=== PATIENT | female | born 1965 | race Hispanic/Latino ===

== ENCOUNTER 2022-08-13 10:55 | Outpatient (CLI) | payer MEDICAID, SELFPAY ==
--- NOTE | 2022-08-13 | ECG_ITS ---
Measurements Intervals [place] Rate: 49 P: 34 VT: 145 QRS: 37 QRSD: 97 T: 50 QT: 471 QTc: 428 Interpretive Statements SINUS BRADYCARDIA BORDERLINE ECG NO PREVIOUS ECG AVAILABLE FOR COMPARISON Electronically Signed On 08-13-2022 17:19:17 CDT by Abner Scott M.D.
--- NOTE | ~2022-08-13 | XR_ITS ---
EXAMINATION: XR chest 2V 08/13/2022 11:28 INDICATION: Preop PROCEDURE: 2 view chest COMPARISON: No prior studies for comparison. FINDINGS: The lungs are clear. The cardiomediastinal silhouette is within normal limits. There are no pleural effusions. There is no pneumothorax suspected. IMPRESSION: 1: NO ACUTE CARDIOPULMONARY DISEASE. Reviewed, dictated and finalized at location A.
== END 2022-08-13 10:56 | disposition home or self-care (01) ==
PROVIDERS: PCP Physician Assistant; Visit Provider Physician Assistant
DX: Z01.818 Encounter for other preprocedural examination (principal)
CPT/HCPCS: 71046; 93005

== ENCOUNTER 2022-11-18 09:17 | Outpatient (CLI) | payer MEDICAID, SELFPAY ==
--- NOTE | 2022-11-18 11:00 | NEURO_ITS ---
Impression: # Complains of numbness of hands. # Evolving bilateral Carpal Tunnel Syndrome. # No ulnar neuropathy. # Normal needle/EMG exam. # Clinical correlation recommended. Motor Nerve Conduction Upper Extremities Median Nerve Conduction Velocity (m/sec) Terminal Latency (msec) Response Voltage(mV) Elbow-Wrist Wrist Elbow Wrist Right 57 3.4 7 7 Left 60 3.6 7 7 Ulnar Nerve Conduction Velocity (m/sec) Terminal Latency (msec) Response Voltage(mV) Above Elbow Below Elbow Wrist Above Elbow Below Elbow Wrist Right 54 2.4 6 7 Left 57 2.4 4 5 F-Wave Latency Median (ms) Ulnar (ms) Right 26.6 26.8 Left 26.6 26.9 Sensory Nerve Conduction Upper Extremities Median Nerve Stimulation Terminal Latency (msec) Wrist/Digit Response Voltage (uV) Wrist Right 3.0/3.1 47/55 Left 3.0/3.2 78/57 Ulnar Nerve Stimulation Terminal Latency (msec) Wrist/Digit Response Voltage (uV) Wrist Right 2.3 40 Left 2.5 48 Radial Nerve Terminal Latency (msec) Response Voltage(mV) Right 2.5 14 Left 2.2 24 Left Right Muscles Examined Fibrillation Fasciculation Scarcity Voltage Duration Left Right Left Right Left Right Left Right Left Right Deltoid Biceps X X Brachioradialis Triceps X X Pronator Teres X X Ext Indicis X X Ext Digitorum X X Abd Poll Brev X X 1st Dorsal Interosseus Paraspinals MTDD
== END 2022-11-18 09:18 | disposition home or self-care (01) ==
LOC: ANHNEURO 09:18
PROVIDERS: PCP Physician Assistant; Visit Provider Physician Assistant
DX: G56.03 Carpal tunnel syndrome, bilateral upper limbs (principal)
CPT/HCPCS: 95886; 95911

== ENCOUNTER 2024-03-13 10:36 | Outpatient (CLI) | payer OTHER, SELFPAY ==
--- NOTE | ~2024-03-13 | MM_ITS ---
EXAMINATION: MM screening mammo implant BI HISTORY: Screening mammogram TECHNIQUE: Craniocaudal and mediolateral oblique views of the breasts without implant displacement we re obtained using full field digital mammography. There was insufficient tissue to perform implant di splaced views. CAD analysis was submitted and interpreted. COMPARISON: No prior mammogram is available for comparison at this institution. BREAST PARENCHYMAL COMPOSITION: The breasts are almost entirely fatty. FINDINGS: Status post bilateral augmentation mammoplasty. There is no evidence of suspicious mass, ca lcification, or architectural distortion to suggest malignancy in either breast. IMPRESSION: 1. No mammographic evidence of malignancy. 2. Recommend routine screening mammography in one year. BI-RADS Category 1: Negative Reviewed, dictated and finalized at location A.
== END 2024-03-13 10:37 | disposition home or self-care (01) ==
LOC: ANHIMG 10:39
PROVIDERS: PCP Physician Assistant; Visit Provider Physician Assistant
DX: Z12.31 Encounter for screening mammogram for malignant neoplasm of breast (principal)
CPT/HCPCS: 77067

== ENCOUNTER 2024-05-04 17:05 | Emergency (ER) | payer OTHER, SELFPAY ==
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
[2024-05-04 17:31] VITALS: BP 130/70; PULSE 62; RESP 16; TEMP 36.4; O2SAT 100
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
[2024-05-04] MEDS: CYCLOBENZAPRINE HCL 5 MG TABLET PO (20:11)
[2024-05-04] MEDS: ACETAMINOPHEN 500 MG TABLET 1000 MG PO (20:11)
[2024-05-04 22:05] VITALS: BP 100/70; PULSE 51; RESP 15; TEMP 36.9; O2SAT 100
== END 2024-05-04 22:07 | disposition home or self-care (01) ==
PROVIDERS: Emergency Provider Physician Assistant; PCP Physician Assistant
DX: S16.1XXA Strain of muscle, fascia and tendon at neck level, initial encounter (principal); S39.012A Strain of muscle, fascia and tendon of lower back, initial encounter; S92.421A Displaced fracture of distal phalanx of right great toe, initial encounter for closed fracture; V40.5XXA Car driver injured in collision with pedestrian or animal in traffic accident, initial encounter
CPT/HCPCS: 70450; 72125; 72128; 72131; 73660; 99284; A9270

== ENCOUNTER 2024-09-15 15:46 | Outpatient (CLI) | payer OTHER, SELFPAY ==
--- NOTE | 2024-09-15 | ECG_ITS ---
Test Date: 2024-09-15 16:05:21 Measurements Intervals [place] Rate: 59 P: 49 ND: 135 QRS: 27 QRSD: 97 T: 41 QT: 420 QTc: 417 Interpretive Statements SINUS BRADYCARDIA BORDERLINE ECG No previous ECG available for comparison Electronically Signed On 09-15-2024 16:14:05 [employer] SPECIALIST by Oswaldo Pemberton D.O.
== END 2024-09-15 15:47 | disposition home or self-care (01) ==
LOC: ANHCARD 15:49
PROVIDERS: PCP Physician Assistant; Visit Provider Physician Assistant
DX: Z01.818 Encounter for other preprocedural examination (principal)
CPT/HCPCS: 93005

== ENCOUNTER 2025-01-13 11:05 | Outpatient (CLI) | payer OTHER, SELFPAY ==
--- NOTE | ~2025-01-13 | MM_ITS ---
EXAMINATION: MM diag quintin implant BI w sadaf HISTORY: Screening mammogram TECHNIQUE: Craniocaudal and mediolateral oblique 2-D images were generated. CAD analysis was submitt ed and interpreted. COMPARISON: 03/13/2024 BREAST PARENCHYMAL COMPOSITION:Not Dense. The breasts are almost entirely fatty FINDINGS: No suspicious mass, calcification, or architectural distortion are identified in either clay ast to suggest malignancy. There has been no suspicious interval change. IMPRESSION: No mammographic evidence of malignancy. Recommend routine screening mammography in one year. BI-RADS Category 1: Negative Reviewed, dictated and finalized at location . 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
--- OUTSIDE RECORDS SUMMARY | 2025-01-13 12:49 | XMS_ITS | Data Portability ---
[facility] Organization [facility] Address [address] [place] [address] Care Team Providers Care Receptionist Doctor'S Office Name Role Phone YANNA PÉREZ Primary Care Provider Assessment Encounter Date Assessment Date Assessment LastModified by Organization Details LastModified Time 03/01/2024 03/01/2024 small lymphnode on left side neck Not available 03/09/2024 14:46:31 08/11/2024 08/11/2024 09/17/24 eye surgery on R side and october other eye Not available 08/17/2024 14:46:10 10/21/2024 10/21/2024 pap scheduled Not available 10/21/2024 13:51:25 Plan of Treatment Reminders Order Date Submit Date Provider Last Modified By Organization Details Last Modified Time Details Appointments None recorded. Lab pap, IG + reflex HPV 2024 025 [facility], [address] [facility], [address], [place], [address], 5 19:19:56 HbA1c (hemoglobi n A1c), blood 2024 025 [facility] In-Office Order, Internal Use Only DO Not Attach Compendium DO Not Attach Compendium, Do Not Delete/merge, [id number] 5 10:58:40 noninvasiv e colorectal cancer DNA + occult blood screening, QL, stool 2024 025 [facility] (Cologuard Orders Only), [address], [address], [place], [address], 5 13:44:43 PT/PTT, plasma 2023 [facility], [address], [address], [place], [address], 4 01:08:11 CBC w/ auto diff 2023 [facility], [address], [address], [place], [address], 4 08:31:31 CMP, serum or plasma 2023 [facility] BOSERP, [address], [address], [place], [address], 4 08:31:30 urinalysis , dipstick 2023 [facility] In-Office Order, Internal Use Only DO Not Attach Compendium DO Not Attach Compendium, Do Not Delete/merge, [id number] 4 17:02:08 HbA1c (hemoglobi n A1c), blood 2023 [facility] MORATAYA, [address], [address], [place], [address], 4 01:08:09 culture, urine 2023 [facility], [address], [address], [place], [address], 4 01:08:10 lipid panel, serum 2023 [facility] BOSERP, [address], [address], [place], [address], 4 01:07:27 TSH, ultra-sens itive, serum 2023 024 [facility], [address] [facility], [address], [place], [address], 4 11:16:20 CMP, serum or plasma 2023 024 [facility], [address] [facility] [address], [address], [place], [address], 4 01:07:27 CBC w/ auto diff 2023 024 [facility], [address] [facility] [address], [address], [place], [address], 4 01:07:28 HbA1c (hemoglobi n A1c), blood 2023 024 [facility], [address] [place] [address] Az, [address], [place], [address], 4 11:16:20 vitamin D, 25-hydroxy , total, serum 2023 024 [facility], [address] [facility], [address], [place], [address], 4 11:16:21 Referral breast surgery referral - had breast reconstruc tion 15 years ago post cancerneed s f/u 2024 025 [facility], [address], [place] [address], [place], [address], 5 17:25:17 gastroente rologist referral [address] ([facility]), [address] [facility] , [place], [address], 5 08:05:37 breast surgery referral - hx of breast cancer and reconstruc tion at [facility] feels mass on left breast under implant [address], [address] [place], [address], 4 16:42:10 gastroente rologist referral [address] (Rad), [address] [place], [address], 4 16:46:50 breast center referral 2023 024 [facility], [address], [address], [place], [address], 4 14:33:59 Procedures colonoscop y screening (PROC) 2023 024 [facility] Toni Tucker MD, [address] [facility] [address], [address], [place], [address], 4 15:37:09 Surgeries None recorded. Imaging MAMMO, diagnostic , digital, bilateral [address] (Mammography) , [address], [place], [address], 5 12:02:40 US, breast, bilateral - Auth # [id number] 2024 025 [facility] (Mammography) , [address], [place], [address], 5 12:40:42 US, breast, unilateral [address] (Rad), [address] [place], [address], 4 08:00:38 MAMMO, diagnostic , digital, bilateral [address] (Rad), [address] [place], [address], 08:00:46 MAMMO, screening, bilateral 2023 [facility] (Imaging), [address], [place], [address], 12:24:23 Medication Orders semaglutid e 0.25 mg or 0.5 mg (2 mg/1.5 mL) subcutaneo us pen injector 2023 [facility], [address], [place], [address], 13:52:17 Miralax 17 gram/dose oral powder 2023 [facility], [address], [place], [address], 17:36:49 Patient TargetsNo targets recorded. Patient Instructions Encounter Date Encounter Id Patient Instructions Last Modified By Organization Details Last Modified Time 03/01/2024 [id number] A healthy lifestyle: care instructions Not available 03/01/2024 16:42:22 08/11/2024 [id number] rhythm strip, EKG* [facility] Not available 09/18/2024 16:13:24 10/21/2024 [id number] A healthy lifestyle: care instructions Not available 10/21/2024 13:52:06 12/20/2024 [id number] A healthy lifestyle: care instructions Not available 12/20/2024 10:35:37 12/23/2024 [id number] A healthy lifestyle: care instructions Not available 12/23/2024 11:36:17 Reason for Referral Breast Center Referral for S creening mammography Referring Physician: Yanna Pérez, Executive Marketing Assistant, Encounter Date: 03/01/2024 Breast Surgery Referral for Mass of left breast hx of breast cancer and reconstruction at [facility] feels mass on left breast under implant Referring Physician: Yanna Pérez Executive Marketing Assistant, Encounter Date: 08/11/2024 Break Out Worker Referral for Screening for malignant neoplasm of colon Referring Physician: General David Lawton, Encounter Date: 08/11/2024 Break Out Worker Referral for Screening for malignant neoplasm of colon Referring Physician: General David Lawton, Encounter Date: 10/21/2024 Breast Surgery Referral for Mastodynia of bilateral breasts had breast reconstruction 15 years ago post cancerneeds f/u Referring Physician: [facility], Encounter Date: 12/23/2024 Results Created Date Observation Date Name Description Value Unit Range Abnormal Flag Note LastModifiedBy Organization Detail LastModifiedTime 03/01/2003/03/2024 LIPID PANEL cholesterol, total 202 mg/dL 100-19 9 above high normal Not Available [facility] Department [address] [place], [address], 03/03/2024 01:07:27 03/01/2003/03/2024 LIPID PANEL triglyceride s 166 mg/dL 0-149 above high normal Not Available [facility] Department [address] [place], [address], 03/03/2024 01:07:27 03/01/2003/03/2024 LIPID PANEL HDL cholesterol 47 mg/dL 40-999 Not Available [facility] Department [address] [place], [address], 03/03/2024 01:07:27 03/01/2003/03/2024 LIPID PANEL VLDL cholesterol leann 33 mg/dL 5-40 Not Available [facility] Department [address] [place], [address], 03/03/2024 01:07:27 03/01/2003/03/2024 LIPID PANEL LDL chol calc ([facility]) 145 mg/dL 0-99 above high normal Not Available [facility] Department [address] [place], [address], 03/03/2024 01:07:27 03/01/20 24 03/03/2024 COMP. METAB OLIC PANEL (14) glucose 67 mg/dL 70-99 below low normal Not Available [facility] Department [address] [place] [address], [address], 03/03/2024 01:07:27 03/01/20 24 03/03/2024 COMP. METAB OLIC PANEL (14) BUN 15 mg/dL 6-24 Not Available [facility] Department [address] [place] [address], [address], 03/03/2024 01:07:27 03/01/20 24 03/03/2024 COMP. METAB OLIC PANEL (14) creatinine 0.84 mg/dL 0.76-1 .27 Not Available [facility] Department [address] [place] [address], [address], 03/03/2024 01:07:27 03/01/20 24 03/03/2024 COMP. METAB OLIC PANEL (14) eGFR 81 >=60 Units for eGFR value s are mL/mi n/1.7 3 The eGFR Calcu latio n has not been valid ated for patie nts under the age of 18. If test resul ts are displ ayed for a patie nt under the age of 18, disre massimo that value . Not Available [facility] Department [address] [place] [address], [address], 03/03/2024 01:07:27 03/01/20 24 03/03/2024 COMP. METAB OLIC PANEL (14) BUN/creatini ne ratio 17 9-23 Not Available [facility] Department [address] [place] [address], [address], 03/03/2024 01:07:27 03/01/20 24 03/03/2024 COMP. METAB OLIC PANEL (14) sodium 139 mmol/ L 134-14 4 Not Available [facility] Department [address] [place] [address], [address], 03/03/2024 01:07:27 03/01/20 24 03/03/2024 COMP. METAB OLIC PANEL (14) potassium 4.3 mmol/ L 3.5-5. 2 Not Available [facility] Department [address] [place], [address], 03/03/2024 01:07:27 03/01/20 24 03/03/2024 COMP. METAB OLIC PANEL (14) chloride 101 mmol/ L 96-106 Not Available [facility] Department [address] [place] [address], [address], 03/03/2024 01:07:27 03/01/20 24 03/03/2024 COMP. METAB OLIC PANEL (14) carbon dioxide, total 23 mmol/ L 20-29 Not Available [facility] Department [address] [place] [address], [address], 03/03/2024 01:07:27 03/01/20 24 03/03/2024 COMP. METAB OLIC PANEL (14) calcium 9.6 mg/dL 8.7-10 .2 Not Available [facility] Department [address] [place], [address], 03/03/2024 01:07:27 03/01/20 24 03/03/2024 COMP. METAB OLIC PANEL (14) protein, total 7.9 g/dL 6.0-8. 5 Not Available [facility] Department [address] [place], [address], 03/03/2024 01:07:27 03/01/20 24 03/03/2024 COMP. METAB OLIC PANEL (14) albumin 4.5 g/dL 3.8-4. 9 Not Available [facility] Department [address] [place], [address], 03/03/2024 01:07:27 03/01/20 24 03/03/2024 COMP. METAB OLIC PANEL (14) globulin, total 3.4 g/dL 1.5-4. 5 Not Available [facility] Department [address] [place], [address], 03/03/2024 01:07:27 03/01/20 24 03/03/2024 COMP. METAB OLIC PANEL (14) A/G ratio 1.0 1.2-2. 2 below low normal Not Available [facility] Department [address] [place], [address], 03/03/2024 01:07:27 03/01/20 24 03/03/2024 COMP. METAB OLIC PANEL (14) bilirubin, total 0.2 mg/dL 0.0-1. 2 Not Available [facility] Department [address] [place], [address], 03/03/2024 01:07:27 03/01/20 24 03/03/2024 COMP. METAB OLIC PANEL (14) alkaline phosphatase 125 IU/L 44-121 above high normal Not Available [facility] Department [address] [place], [address], 03/03/2024 01:07:27 03/01/20 24 03/03/2024 COMP. METAB OLIC PANEL (14) AST (SGOT) 17 IU/L 0-40 Not Available [facility] Department [address] [place], [address], 03/03/2024 01:07:27 03/01/20 24 03/03/2024 COMP. METAB OLIC PANEL (14) ALT (SGPT) 14 IU/L 0-32 Not Available [facility] Department [address] [place], [address], 03/03/2024 01:07:27 03/01/20 24 03/02/2024 CBC WITH DIFFE RENTI AL/PL ATELE T WBC 6.5 x10e3 /uL 3.4-10 .8 Not Available [facility] Department [address] [place], [address], 03/03/2024 01:07:28 03/01/20 24 03/02/2024 CBC WITH DIFFE RENTI AL/PL ATELE T RBC 4.22 x10e6 /uL 3.77-5 .28 Not Available [facility] Department [address] [place], [address], 03/03/2024 01:07:28 03/01/2003/02/2024 CBC WITH DIFFE RENTI AL/PL ATELE T hemoglobin 11.8 g/dL 11.1-1 5.9 Not Available [facility] Department [address] [place], [address], 03/03/2024 01:07:28 03/01/2003/02/2024 CBC WITH DIFFE RENTI AL/PL ATELE T hematocrit 38.3 % 34.0-4 6.6 Not Available [facility] Department [address] [place], [address], 03/03/2024 01:07:28 03/01/20 24 03/02/2024 CBC WITH DIFFE RENTI AL/PL ATELE T MCV 91 fL 79-97 Not Available [facility] Department [address] [place], [address], 03/03/2024 01:07:28 03/01/2003/02/2024 CBC WITH DIFFE RENTI AL/PL ATELE T MCH 28.0 pg 26.6-3 3.0 Not Available [facility] Department [address] [place], [address], 03/03/2024 01:07:28 03/01/2003/02/2024 CBC WITH DIFFE RENTI AL/PL ATELE T MCHC 30.8 g/dL 31.5-3 5.7 below low normal Not Available [facility] Department [address] [place], [address], 03/03/2024 01:07:28 03/01/20 24 03/02/2024 CBC WITH DIFFE RENTI AL/PL ATELE T RDW 14.9 % 11.5-1 4.5 above high normal Not Available [facility] Department [address] [place], [address], 03/03/2024 01:07:28 03/01/20 24 03/02/2024 CBC WITH DIFFE RENTI AL/PL ATELE T platelets 286 x10e3 /uL 150-45 0 Not Available [facility] Department [address] [place], [address], 03/03/2024 01:07:28 03/01/20 24 03/02/2024 CBC WITH DIFFE RENTI AL/PL ATELE T neutrophils 57 % notest b. Not Available [facility] Department [address] [place] [address], [address], 03/03/2024 01:07:28 03/01/20 24 03/02/2024 CBC WITH DIFFE RENTI AL/PL ATELE T lymphs 33 % notest b. Not Available [facility] Department [address] [place] [address], [address], 03/03/2024 01:07:28 03/01/20 24 03/02/2024 CBC WITH DIFFE RENTI AL/PL ATELE T monocytes 7 % notest b. Not Available [facility] Department [address] [place], [address], 03/03/2024 01:07:28 03/01/20 24 03/02/2024 CBC WITH DIFFE RENTI AL/PL ATELE T eos 1 % notest b. Not Available [facility] Department [address] [place] [address], [address], 03/03/2024 01:07:28 03/01/20 24 03/02/2024 CBC WITH DIFFE RENTI AL/PL ATELE T basos 1 % notest b. Not Available [facility] Department [address] [place] [address], [address], 03/03/2024 01:07:28 03/01/20 24 03/02/2024 CBC WITH DIFFE RENTI AL/PL ATELE T neutrophils (absolute) 3.7 x10e3 /uL 1.4-7. 0 Not Available [facility] Department [address] [place], [address], 03/03/2024 01:07:28 03/01/20 24 03/02/2024 CBC WITH DIFFE RENTI AL/PL ATELE T lymphs (absolute) 2.2 x10e3 /uL 0.7-3. 1 Not Available [facility] Department [address] [place] [address], [address], 03/03/2024 01:07:28 03/01/20 24 03/02/2024 CBC WITH DIFFE RENTI AL/PL ATELE T monocytes(ab solute) 0.5 x10e3 /uL 0.1-0. 9 Not Available [facility] Department [address] [place], [address], 03/03/2024 01:07:28 03/01/20 24 03/02/2024 CBC WITH DIFFE RENTI AL/PL ATELE T eos (absolute) 0.1 x10e3 /uL 0.0-0. 4 Not Available [facility] Department [address] [place] [address], [address], 03/03/2024 01:07:28 03/01/20 24 03/02/2024 CBC WITH DIFFE RENTI AL/PL ATELE T baso (absolute) 0.0 x10e3 /uL 0.0-0. 2 Not Available [facility] Department [address] [place], [address], 03/03/2024 01:07:28 03/01/20 24 03/02/2024 CBC WITH DIFFE RENTI AL/PL ATELE T immature granulocytes 0.3 % notest b. Not Available [facility] Department [address] [place] [address], [address], 03/03/2024 01:07:28 03/01/2003/02/2024 CBC WITH DIFFE RENTI AL/PL ATELE T immature grans (abs) 0.0 x10e3 /uL 0.0-0. 1 Not Available [facility] Department [address] [place], [address], 03/03/2024 01:07:28 03/01/20 24 03/02/2024 CBC WITH DIFFE RENTI AL/PL ATELE T NRBC 0 % 0-0 Not Available [facility] Department [address] [place], [address], 03/03/2024 01:07:28 03/01/2003/03/2024 TSH RFX ON ABNOR MAL TO FREE T4 TSH 2.030 uIU/m L 0.450- 4.500 Not Available [facility] ([facility]) [address] [facility], [place], [address], 03/03/2024 11:16:20 03/01/2003/03/2024 HEMOG LOBIN A1C hemoglobin A1C 6.1 % 4.8-5. 6 above high normal Predi abete s: 5.7 - 6.4 Diabe aleksandr: >6.4 Glyce max contr ol for adult s with diabe aleksandr: <7.0 Not Available [facility] ([facility]) [address] [facility], [place], [address], 03/03/2024 11:16:20 03/01/20 24 03/03/2024 VITAM IN D, 25-HY DROXY vitamin D, 25-hydroxy 23.1 NG/mL 30.0-1 00.0 below low normal Vitam in D defic iency has been defin ed by the Insti tute of Medic ine and an Endoc rine Socie ty pract ice guide line as a level of serum 25-OH vitam in D less than 20 ng/mL (1,2) . The Endoc rine Socie ty went on to replaced by [facility] anson er defin e vitam in D insuf ficie ncy as a level betwe en 21 and 29 ng/mL (2). 1. IOM (Inst itute of Medic ine). 2010. Dieta ry refer ence jillian es for calci um and D. Kacie joya [place]: The [facility] . 2. Holic k [place], Bink[place] ey [place], Bisch off-F errar i BENJAMIN, et al. Evalu ation , treat ment, and preve ntion of vitam in D defic iency : an Endoc rine Socie ty clini leann pract ice guide line. JCEM. 2010; 96(7) :1911 -30. Not Available [facility] ([facility]) [address] [place], [address], 03/03/2024 11:16:21 08/11/2008/13/2024 COMP. METAB OLIC PANEL (14) glucose 81 mg/dL 70-99 Not Available [facility] ([facility]) [address] [place], [address], 08/13/2024 08:31:30 08/11/2008/13/2024 COMP. METAB OLIC PANEL (14) BUN 12 mg/dL 6-24 Not Available [facility] ([facility]) [address] [place], [address], 08/13/2024 08:31:30 08/11/2008/13/2024 COMP. METAB OLIC PANEL (14) creatinine 0.79 mg/dL 0.57-1 .00 Not Available [facility] ([facility]) [address] [place], [address], 08/13/2024 08:31:30 08/11/2008/13/2024 COMP. METAB OLIC PANEL (14) eGFR 87 mL/mi n/1.7 3 >59 Not Available [facility] ([facility]) [address] [place], [address], 08/13/2024 08:31:30 08/11/20 24 08/13/2024 COMP. METAB OLIC PANEL (14) BUN/creatini ne ratio 15 9-23 Not Available [facility] ([facility]) [address] [facility], [place], [address], 08/13/2024 08:31:30 08/11/20 24 08/13/2024 COMP. METAB OLIC PANEL (14) sodium 142 mmol/ L 134-14 4 Not Available [facility] ([facility]) [address] [facility], [place], [address], 08/13/2024 08:31:30 08/11/20 24 08/13/2024 COMP. METAB OLIC PANEL (14) potassium 4.1 mmol/ L 3.5-5. 2 Not Available [facility] ([facility]) [address] [facility], [place], [address], 08/13/2024 08:31:30 08/11/20 24 08/13/2024 COMP. METAB OLIC PANEL (14) chloride 101 mmol/ L 96-106 Not Available [facility] ([facility]) [address] [place], [address], 08/13/2024 08:31:30 08/11/20 24 08/13/2024 COMP. METAB OLIC PANEL (14) carbon dioxide, total 26 mmol/ L 20-29 Not Available [facility] ([facility]) [address] [facility], [place], [address], 08/13/2024 08:31:30 08/11/20 24 08/13/2024 COMP. METAB OLIC PANEL (14) calcium 9.8 mg/dL 8.7-10 .2 Not Available [facility] ([facility]) [address] [place], [address], 08/13/2024 08:31:30 08/11/20 24 08/13/2024 COMP. METAB OLIC PANEL (14) protein, total 8.2 g/dL 6.0-8. 5 Not Available [facility] ([facility]) [address] [place], [id number], 08/13/2024 08:31:30 08/11/20 24 08/13/2024 COMP. METAB OLIC PANEL (14) albumin 4.6 g/dL 3.8-4. 9 Not Available [facility] ([facility]) [address] [place] [place], [id number], 08/13/2024 08:31:30 08/11/20 24 08/13/2024 COMP. METAB OLIC PANEL (14) globulin, total 3.6 g/dL 1.5-4. 5 Not Available [facility] ([facility]) [address] [place] [place], [id number], 08/13/2024 08:31:30 08/11/20 24 08/13/2024 COMP. METAB OLIC PANEL (14) bilirubin, total 0.2 mg/dL 0.0-1. 2 Not Available [facility] ([facility]) [address] [facility] [place], [address], 08/13/2024 08:31:30 08/11/20 24 08/13/2024 COMP. METAB OLIC PANEL (14) alkaline phosphatase 130 IU/L 44-121 above high normal Not Available [facility] ([facility]) [address] [place] [place], [address], 08/13/2024 08:31:30 08/11/20 24 08/13/2024 COMP. METAB OLIC PANEL (14) AST (SGOT) 26 IU/L 0-40 Not Available [facility] ([facility]) [address] [place] [place], [address], 08/13/2024 08:31:30 08/11/20 24 08/13/2024 COMP. METAB OLIC PANEL (14) ALT (SGPT) 42 IU/L 0-32 above high normal Not Available [facility] ([facility]) [address] [facility], [place], [address], 08/13/2024 08:31:30 08/11/20 24 08/13/2024 CBC WITH DIFFE RENTI AL/PL ATELE T WBC 6.2 x10e3 /uL 3.4-10 .8 Not Available [facility] ([facility]) [address] [facility], [place], [address], 08/13/2024 08:31:31 08/11/20 24 08/13/2024 CBC WITH DIFFE RENTI AL/PL ATELE T RBC 4.71 x10e6 /uL 3.77-5 .28 Not Available [facility] ([facility]) [address] [facility], [place], [address], 08/13/2024 08:31:31 08/11/20 24 08/13/2024 CBC WITH DIFFE RENTI AL/PL ATELE T hemoglobin 12.5 g/dL 11.1-1 5.9 Not Available [facility] ([facility]) [address] [facility], [place], [address], 08/13/2024 08:31:31 08/11/20 24 08/13/2024 CBC WITH DIFFE RENTI AL/PL ATELE T hematocrit 41.1 % 34.0-4 6.6 Not Available [facility] ([facility]) [address] [facility], [place], [address], 08/13/2024 08:31:31 08/11/20 24 08/13/2024 CBC WITH DIFFE RENTI AL/PL ATELE T MCV 87 fL 79-97 Not Available [facility] ([facility]) [address] [place], [address], 08/13/2024 08:31:31 08/11/20 24 08/13/2024 CBC WITH DIFFE RENTI AL/PL ATELE T MCH 26.5 pg 26.6-3 3.0 below low normal Not Available [facility] ([facility]) [address] [facility], [place], [address], 08/13/2024 08:31:31 08/11/20 24 08/13/2024 CBC WITH DIFFE RENTI AL/PL ATELE T MCHC 30.4 g/dL 31.5-3 5.7 below low normal Not Available [facility] ([facility]) [address] [facility], [place], [address], 08/13/2024 08:31:31 08/11/20 24 08/13/2024 CBC WITH DIFFE RENTI AL/PL ATELE T RDW 15.2 % 11.7-1 5.4 Not Available [facility] ([facility]) [address] [facility], [place], [address], 08/13/2024 08:31:31 08/11/20 24 08/13/2024 CBC WITH DIFFE RENTI AL/PL ATELE T platelets 313 x10e3 /uL 150-45 0 Not Available [facility] ([facility]) [address] [facility], [place], [address], 08/13/2024 08:31:31 08/11/20 24 08/13/2024 CBC WITH DIFFE RENTI AL/PL ATELE T neutrophils 52 % notest ab. Not Available [facility] ([facility]) [address] [facility], [place], [address], 08/13/2024 08:31:31 08/11/20 24 08/13/2024 CBC WITH DIFFE RENTI AL/PL ATELE T lymphs 34 % notest ab. Not Available [facility] ([facility]) [address] [facility], [place], [address], 08/13/2024 08:31:31 08/11/20 24 08/13/2024 CBC WITH DIFFE RENTI AL/PL ATELE T monocytes 10 % notest ab. Not Available [facility] ([facility]) [address] [facility], [place], [address], 08/13/2024 08:31:31 08/11/2008/13/2024 CBC WITH DIFFE RENTI AL/PL ATELE T eos 2 % notest ab. Not Available [facility] ([facility]) [address] [facility], [place], [address], 08/13/2024 08:31:31 08/11/2008/13/2024 CBC WITH DIFFE RENTI AL/PL ATELE T basos 1 % notest ab. Not Available [facility] ([facility]) [address] [facility], [place], [address], 08/13/2024 08:31:31 08/11/20 24 08/13/2024 CBC WITH DIFFE RENTI AL/PL ATELE T neutrophils (absolute) 3.3 x10e3 /uL 1.4-7. 0 Not Available [facility] ([facility]) [address] [facility], [place], [address], 08/13/2024 08:31:31 08/11/2008/13/2024 CBC WITH DIFFE RENTI AL/PL ATELE T lymphs (absolute) 2.1 x10e3 /uL 0.7-3. 1 Not Available [facility] ([facility]) [address] [facility], [place], [address], 08/13/2024 08:31:31 08/11/2008/13/2024 CBC WITH DIFFE RENTI AL/PL ATELE T monocytes(ab solute) 0.6 x10e3 /uL 0.1-0. 9 Not Available [facility] ([facility]) [address] [facility], [place], [address], 08/13/2024 08:31:31 08/11/20 24 08/13/2024 CBC WITH DIFFE RENTI AL/PL ATELE T eos (absolute) 0.2 x10e3 /uL 0.0-0. 4 Not Available [facility] ([facility]) [address] [facility], [place], [address], 08/13/2024 08:31:31 08/11/20 24 08/13/2024 CBC WITH DIFFE RENTI AL/PL ATELE T baso (absolute) 0.0 x10e3 /uL 0.0-0. 2 Not Available [facility] ([facility]) [address] [facility], [place], [address], 08/13/2024 08:31:31 08/11/20 24 08/13/2024 CBC WITH DIFFE RENTI AL/PL ATELE T immature granulocytes 1 % notest ab. Not Available [facility] ([facility]) [address] [facility], [place], [address], 08/13/2024 08:31:31 08/11/20 24 08/13/2024 CBC WITH DIFFE RENTI AL/PL ATELE T immature grans (abs) 0.1 x10e3 /uL 0.0-0. 1 Not Available [facility] ([facility]) [address] [facility], [place], [address], 08/13/2024 08:31:31 08/11/20 24 08/13/2024 SPECI MEN STATU S REPOR T specimen status report TNP Test not perfo rmed due to the age of this speci men. TEST: 36054 1 PT and PTT Not Available [facility] ([facility]) [address] [facility], [place], [address], 08/14/2024 01:08:08 08/11/2008/13/2024 HEMOG LOBIN A1C hemoglobin A1C 6.2 % 4.8-5. 6 above high normal Predi abete s: 5.7 - 6.4 Diabe aleksandr: >6.4 Glyce max contr ol for adult s with diabe aleksandr: <7.0 Not Available [facility] ([facility]) [address] [place], [address], 08/14/2024 01:08:09 08/11/20 24 08/14/2024 URINE CULTU RE, ROUTI NE urine culture, routine FINAL REPORT Not Available [facility] ([facility]) [address] [place], [address], 08/14/2024 01:08:10 08/11/20 24 08/14/2024 URINE CULTU RE, ROUTI NE result 1 COMMEN T Cultu re shows less than 10,00 0 colon y formi ng units of bacte gary per maude liter of urine . This colon y count is not gener ally consi dered to be clini mallika signi fican t. Not Available [facility] ([facility]) [address] [place], [address], 08/14/2024 01:08:10 08/11/20 24 08/13/2024 PT AND PTT INR TNP Test not perfo rmed due to the age of this speci men. Refer ence inter janay is for non-a ntico agula laurel patie nts. Sugge sted INR thera peuti c range for Vitam in K antag onist thera py: Stand celestine Dose (mode rate inten sity thera peuti c range ): 2.0 - 3.0 Highe r inten sity thera peuti c range 2.5 - 3.5 Not Available [facility] ([facility]) [address] [facility], [place], [address], 08/14/2024 01:08:11 08/11/20 24 08/13/2024 PT AND PTT prothrombin time - Test not perfo rmed Not Available [facility] ([facility]) [address] [place], [address], 08/14/2024 01:08:11 08/11/20 24 08/13/2024 PT AND PTT APTT - Test not perfo rmed Not Available [facility] ([facility]) [address] [facility] [place], [address], 08/14/2024 01:08:11 08/12/2008/12/2024 urina lysis , dipst ick Leukocytes Modera te Not Available In-Office Order Internal Use Only DO Not Attach Compendium DO Not Attach Compendium, Do Not Delete/merge, 08/11/2024 16:30:37 08/12/20 24 08/12/2024 urina lysis , dipst ick Nitrite negati ve Not Available In-Office Order Internal Use Only DO Not Attach Compendium DO Not Attach Compendium, Do Not Delete/merge, 08/11/2024 16:30:37 08/12/20 24 08/12/2024 urina lysis , dipst ick Urobilinogen .2 Not Available In-Of fice Order Internal Use Only DO Not Attach Compendium DO Not Attach Compendium, Do Not Delete/merge, 08/11/2024 16:30:37 08/12/20 24 08/12/2024 urina lysis , dipst ick Protein Negati ve Not Available In-Office Order Internal Use Only DO Not Attach Compendium DO Not Attach Compendium, Do Not Delete/merge, 08/11/2024 16:30:37 08/12/20 24 08/12/2024 urina lysis , dipst ick pH 7.0 Not Available In-Office Order Internal Use Only DO Not Attach Compendium DO Not Attach Compendium, Do Not Delete/merge, 08/11/2024 16:30:37 08/12/20 24 08/12/2024 urina lysis , dipst ick Blood Non-He molyze d: Modera te Not Available In-Office Order Internal Use Only DO Not Attach Compendium DO Not Attach Compendium, Do Not Delete/merge, 08/11/2024 16:30:37 08/12/20 24 08/12/2024 urina lysis , dipst ick Specific [place] 1.015 Not Available In-Off ice Order Internal Use Only DO Not Attach Compendium DO Not Attach Compendium, Do Not Delete/merge, 08/11/2024 16:30:37 08/12/20 24 08/12/2024 urina lysis , dipst ick Ketone Negati ve Not Available In-Office Order Internal Use Only DO Not Attach Compendium DO Not Attach Compendium, Do Not Delete/merge, [id number] 08/11/2024 16:30:37 08/12/20 24 08/12/2024 urina lysis , dipst ick Bilirubin Negati ve Not Available In-Office Order Internal Use Only DO Not Attach Compendium DO Not Attach Compendium, Do Not Delete/merge, [id number] 08/11/2024 16:30:37 08/12/20 24 08/12/2024 urina lysis , dipst ick Glucose Negati ve Not Available In-Office Order Internal Use Only DO Not Attach Compendium DO Not Attach Compendium, Do Not Delete/merge, [id number] 08/11/2024 16:30:37 08/12/20 24 08/12/2024 urina lysis , dipst ick Appearance Cloudy Not Available In-Offi ce Order Internal Use Only DO Not Attach Compendium DO Not Attach Compendium, Do Not Delete/merge, [id number] 08/11/2024 16:30:37 08/12/20 24 08/12/2024 urina lysis , dipst ick Color Yellow Not Available In-Office Order Internal Use Only DO Not Attach Compendium DO Not Attach Compendium, Do Not Delete/merge, [id number] 08/11/2024 16:30:37 12/21/19 25 12/21/2024 HbA1c (hemo globi n A1c), blood HbA1c 6.1 Not Available In-Office Order Internal Use Only DO Not Attach Compendium DO Not Attach Compendium, Do Not Delete/merge, [id number] 12/20/2024 10:47:05 12/23/19 25 12/23/2024 IGP,A PTIMA HPV,A GE GDLN age gdln acog testing 30-65 Not Available [facility] ([facility]) [address] [facility], [place], [address], 12/27/2024 19:19:56 12/23/19 25 12/24/2024 IGP, APTIM A HPV, RFX 16/18 ,45 HPV aptima Negati ve negati ve This nucle ic acid ampli ficat ion test detec ts fourt een high- risk HPV types (16,1 8,31, 33,35 ,39,4 5,51, 52,56 ,58,5 9,66, 68) witho ut diffe renti ation . Not Available [facility] ([facility]) [address] [facility], [place], [address], 12/27/2024 19:19:57 12/23/19 25 12/27/2024 IGP, APTIM A HPV, RFX 16/18 ,45 diagnosis: Onesimo alonzo NEGAT EVAN FOR INTRA EPITH ELIAL LESIO N OR CARYN DURAN . CELLU PABLO BURTON ES ASSOC IATED WITH ATROP HY ARE PRESE NT. Not Available [facility] ([facility]) [address] [facility], [place], [address], 12/27/2024 19:19:57 12/23/19 25 12/27/2024 IGP, APTIM A HPV, RFX 16/18 ,45 specimen adequacy: Onesimo t Satis facto ry for evalu ation . Endoc ervic al compo nent may not be disti nguis hed in cases of atrop hy. Not Available [facility] ([facility]) [address] [facility], [place], [address], 12/27/2024 19:19:57 12/23/19 25 12/27/2024 IGP, APTIM A HPV, RFX 16/18 ,45 clinician provided ICD10: Onesimo alonzo Z01.4 19 Not Available [facility] ([facility]) [address] [place], [address], 12/27/2024 19:19:57 12/23/19 25 12/27/2024 IGP, APTIM A HPV, RFX 16/18 ,45 performed by: Onesimo valle, Cytot ariel alonzo (ASCP ) Not Available [facility] ([facility]) [address] [place], [address], 12/27/2024 19:19:57 12/23/19 25 12/27/2024 IGP, APTIM A HPV, RFX 16/18 ,45 . . Not Available [facility] ([facility]) [address] [facility], [place], [address], 12/27/2024 19:19:57 12/23/19 25 12/27/2024 IGP, APTIM A HPV, RFX 16/18 ,45 note: Commen t The Pap smear is a scree mia test desig ladonna to aid in the detec tion of fei ligna nt and malig nant condi tions of the uteri ne cervi x. It is not a diagn ostic proce dure and shoul d not be used as the sole means of detec ting cervi leann cance r. Both false -posi tive and false -nega tive repor ts do occur . Not Available [facility] ([facility]) [address] [facility], [place], [address], 12/27/2024 19:19:57 12/23/19 25 12/27/2024 IGP, APTIM A HPV, RFX 16/18 ,45 test methodology: Commen t This liqui d based ThinP rep(R ) pap test was scree ladonna with the use of an image guide lashaun systkonrad m. Not Available [facility] ([facility]) [address] [facility], [place], [address], 12/27/2024 19:19:57 12/23/19 25 12/27/2024 IGP, APTIM A HPV, RFX 16/18 ,45 HPV genotype reflex Commen t Crite gary not met, HPV Genot ype not perfo rmed. Not Available [facility] ([facility]) [address] [facility], [place], [address], 12/27/2024 19:19:57 02/2401/03/2025 COLOG UARD cologuard result reportable NEGATI VE negati ve normal NEGAT EVAN TEST RESUL T. A negat evan Colog uard resul t indic ates a low likel ihood that a color ectal cance r (CRC) or advan aydee adeno ma (seamus omato us polyp s with more advan aydee pre-m align ant featu res) is prese nt. The [facility] e that a perso n with a negat evan Colog uard test has a color ectal cance r is less than 1 in 1500 (nega tive predi ctive value >99.9 %) or has an advan aydee adeno ma is less than 5.3% (nega tive predi ctive value 94.7% ). These data are based on a prosp ectiv e cross -sect ional study of ,00 0 indiv idual s at [place] [facility] risk for color ectal cance r who were scree ladonna with both Colog uard and colon oscop y. (Mary Andrews et al, N Engl J Med 2014; 370(1 4):12 86-12 97) The kwadwo l value (refe rence range ) for this assay is negat evan. COLOG UARD RE-SC REENI NG RECOM MENDA TION: Perio dic color ectal cance r scree mia is an impor tant part of preve ntive healt hcare for asymp tomat ic indiv idual s at [place] risk for color ectal cance r. Follo wing a negat evan Colog uard resul t, the Ameri can Cance r Socie ty and U.S. Multi -Soci ety Task Force scree mia guide lines recom mend a Colog uard re-sc reeni ng inter janay of 3 years . Refer ences : Ameri can Cance r Socie ty Guide line for Color ectal Cance r Scree mia: https ://imani w.can cer.o rg/ca ncer/ colon -rect al-ca ncer/ detec tion- diagn osis- stagi ng/ac s-rec ommen datio ns.ht ml.; Tayo CABRAL, [place] d CR, Domin brent JK, Color ectal Cance r Scree mia: Recom menda tions for Physi cians and Patie nts from the U.S. Multi -Soci ety Task Force on Color ectal Cance r Scree miaMaxim cevallos y 2017; 112:1 016-1 030. TEST DESCR IPTIO N: [place] site algor ithmi c kavitha sis of stool DNA-b iomar kers with hemog lobin immun oassa y. Quant itati ve value s of indiv idual bioma rkers are not repor table and are not assoc iated with indiv idual bioma rker resul t refer ence range s. Colog uard is inten ded for color ectal cance r scree mia of adult s of eithe r sex, 45 years or older , who are at [facility] for color ectal cance r (CRC) . Colog uard has been appro vanessa for use by the U.S. FDA. The perfo rmanc e of Colog uard was estab lishe d in a cross secti onal study of [facility] adult s aged 50-84 . Colog uard perfo rmanc e in patie nts ages 45 to 49 years was estim ated by jack-g milla kavitha sis of near- age group s. Colon oscop ies perfo rmed for a posit evan resul t may find as the most clini mallika signi fican t lesio n: color ectal cance r [4.0% ], advan aydee adeno ma (incl uding sessi le radha laurel polyp s great er than or equal to 1cm diame ter) [20%] or non- advan aydee adeno ma [31%] ; or no color ectal neopl natalie [45%] . These estim ates are deriv ed from a prosp ectiv e cross -sect ional scree mia study of 10,00 0 indiv idual s at [facility] risk for color ectal cance r who were scree ladonna with both Colog uard and colon oscop y. (Mary Andrews et al, N Engl J Med 2014; 370(1 4):12 86-12 97.) Colog uard may produ ce a false negat evan or false posit evan resul t (no color ectal cance r or preca ncero us polyp prese nt at colon oscop y follo w up). A negat evan Colog uard test resul t does not guara ntee the absen ce of CRC or advan aydee adeno ma (pre- cance r). The curre nt Colog uard scree mia inter janay is every 3 years . (Amer ican Cance r Socie ty and U.S. Multi -Soci ety Task Force ). Colog uard perfo rmanc e data in a 10,00 0 patie nt pivot al study using colon oscop y as the refer ence metho d can be acces sed at the follo wing locat ion: www.e xactl abs.c om/re sulcandido . Addit ional descr iptio n of the Colog uard test proce ss, warni ngs and preca ution s can be found at www.c ologu celestine.c om. Not Available [facility] (Cologuard Orders Only) [address], [place], [address], 01/08/2025 13:44:43 03/15/20 24 03/13/2024 MAMMO , ragini mia, bilat eral No observ ation record ed. [address], [address], 03/16/2024 12:13:01 03/15/20 24 03/13/2024 MAMMO , ralfkonrad olverag, bilat eral No observ ation record ed. [address], [address], 03/16/2024 12:13:01 05/04/20 24 05/04/2024 XR, toe(s ) No observ ation record ed. [address], [address], 05/12/2024 08:53:22 05/04/20 24 05/04/2024 CT, head + brain , w/o contr ast No observ ation record ed. [address] [facility], [place], [address], 05/12/2024 08:54:08 05/04/20 24 05/04/2024 CT, cervi leann spine , w/o contr ast No observ ation record ed. [address], [place], [address], 05/12/2024 08:54:35 05/04/20 24 05/04/2024 CT, lumba r spine , w/o contr ast No observ ation record ed. [address] [address], [place], [address], 05/12/2024 08:55:50 09/18/20 24 09/15/2024 rhyth m strip , EKG* No observ ation record ed. [facility] (Pulmonary) [address] [place], [place] [address]e [facility], [place], [address], 09/22/2024 05:59:48 Result Notes None recorded. Problems Name Problem SNOMED Code Status Onset Date Resolution Date Notes Provider Name and Address Organization Details Recorded Time Carcinoma of breast 885671508 Active 2021 COLE LAWTON Attn: Thai cevallos,[address] [facility], [place], [address], [facility] 2 10:15:17 Overweight 750017795 Active 2023 COLE LAWTON Attn: Thai cevallos,[address], [place], [address], [place] - [facility] 4 14:42:45 Constipatio n 86251283 Active 2023 COLE LAWTON Attn: Thai cevallos,[address], [place], [address], [facility] - [facility] 4 14:45:58 Obesity 020825727 Active 2023 COLE LAWTON Attn: Thai cevallos,[address] [facility], [place], [address], [facility] 13:52:23 Vitamin D deficiency 74920226 Active Riya Myers null, [place] - [place] 6 13:48:17 Serous otitis media 68956275 Completed 09/25/2016 Vicky Weir RN null, [facility] 6 16:35:09 Acute otitis media 6508473 Completed 09/25/2016 Vicky Weir RN null, [facility] 6 16:35:05 Problem Notes None recorded. Procedures Surgical History Date Name Laterality Status Provider Name and Address Organization Details Recorded Time 4 Date of Last Mammogram completed Marilyn Mora MA [facility] 12/23/2024 11:24:33 6 Date of Last Pap Smear completed Marilyn Mora MA [facility] 12/23/2024 11:24:21 Imaging Results Imaging Date Name Status LastModified by [facility] Details LastModified Time 03/13/2024 MAMMO, screening, bilateral completed [address], [address], 03/16/2024 12:13:01 03/13/2024 MAMMO, screening, bilateral completed [address], [address], 03/16/2024 12:13:01 05/04/2024 XR, toe(s) completed [address], [address], 05/12/2024 08:53:22 05/04/2024 CT, head + brain, w/o contrast completed [address], [address], 05/12/2024 08:54:08 05/04/2024 CT, cervical spine, w/o contrast completed [id number] [facility] [address], [place], [address], 05/12/2024 08:54:35 05/04/2024 CT, lumbar spine, w/o contrast completed [address] [facility] [address], [place], [address], 05/12/2024 08:55:50 09/15/2024 rhythm strip, EKG* completed [facility] (Pulmonary) [address] [place] [address] [address] [facility], [place], [address], 09/22/2024 05:59:48 Procedure Notes None recorded. Medical Equipment None Reported. Allergies No known drug allergies Medications Name Sig Start Date Stop Date Status Note LastModified by Organization Details LastModified Time cyclobenzap rine 10 mg tablet 09/25 completed Not Available Not Available Not Available amoxicillin 500 mg capsule 08/27 completed Not Available Not Available Not Available trazodone 50 mg tablet TAKE 2 TABLETS BY MOUTH EVERY NIGHT 09/13 completed Not Available Not Available Not Available ibuprofen 800 mg tablet 09/25 completed Not Available Not Available Not Available ofloxacin 0.3 % eye drops active Not Available Not Available Not Available hydrocodone 5 mg-acetamin ophen 325 mg tablet 11/27 completed Not Available Not Available Not Available polyvinyl alcohol 1.4 % eye drops APPLY 1 DROP BY OPHTHALMI C ROUTE 4 TIMES DAILY AROUND THE CLOCK active Not Available Not Available No t Available prednisone 20 mg tablet Take 4 tabs daily for 3 days; then 3 tabs daily for 3 days; then 2 tabs daily for 3 days; then 1 tab daily for 3 days by oral route. 11/27 completed Not Available Not Available Not Available topiramate 25 mg tablet Take 1 tablet every day by oral route for 90 days. 09/13 completed Not Available Not Available Not Available hydrocodone 10 mg-acetamin ophen 325 mg tablet TAKE 1 TO 2 TABLETS BY MOUTH EVERY 6 HOURS NEEDED. MAX OF 6 TABLETS PER 24 HOURS. 09/13 completed Not Available Not Available Not Available acetaminoph en 500 mg tablet TAKE 2 TABLETS BY MOUTH EVERY 6 HOURS NEEDED FOR PAIN active Not Available Not Available No t Available ketorolac 0.5 % eye drops active Not Available Not Available Not Available amoxicillin 875 mg tablet Take 1 tablet every 12 hours by oral route. 09/25 completed Not Available Not Available Not Available amitriptyli ne 25 mg tablet Take 1 tablet every day by oral route at bedtime for 90 days. 03/09 completed Not Available Not Available Not Available prednisolon e acetate 1 % eye drops,suspe nsion active Not Available Not Available Not Available lidocaine 5 % topical patch USE 1 PATCH EXTERNALL Y ONCE DAILY LEAVE ON MOST PAINFUL AREA FOR UP TO 12 HOURS active Not Available Not Available No t Available ibuprofen 600 mg tablet Take 1 tablet 3 times a day by oral route. active Not Available Not Available No t Available polyethylen e glycol 3350 17 gram/dose oral powder MIX AND TAKE 17 GRAMS (ONE CAPFUL) BY MOUTH ONCE DAILY active Not Available Not Available No t Available methylpredn isolone 4 mg tablets in a dose pack Take by oral route as directed on package 09/25 completed Not Available Not Available Not Available Vitamin D2 1,250 mcg (50,000 unit) capsule TAKE 1 CAPSULE BY MOUTH EVERY WEEK 09/25 completed Not Available Not Available Not Available ondansetron 4 mg disintegrat ing tablet 11/27 completed Not Available Not Available Not Available Sudafed 12 Hour 120 mg tablet,exte nded release Take 1 tablet every 12 hours by oral route as needed. 09/25 completed Not Available Not Available Not Available naproxen 500 mg tablet 09/25 completed Not Available Not Available Not Available oxycodone 5 mg tablet 03/11 completed Not Available Not Available Not Available cyclobenzap rine 5 mg tablet TAKE 1 TABLET BY MOUTH THREE TIMES DAILY NEEDED FOR MUSCLE SPASM active Not Available Not Available No t Available nitrofurant oin monohydrate /macrocryst als 100 mg capsule TAKE 1 CAPSULE BY MOUTH EVERY 12 HOURS FOR 5 DAYS 10/21 completed Not Available Not Available Not Available calcium 600 mg (as carbonate)- vitamin D3 10 mcg (400 unit) tablet Take 1 tablet every day by oral route. 2021 active Not Available Not Available Not Avai lable cholecalcif ethel (vitamin D3) 125 mcg (5,000 unit) tablet TAKE 1 TABLET BY MOUTH ONCE DAILY FOR 90 DAYS active Not Available Not Available No t Available ketorolac 30 mg/mL injection solution Inject 1 mL every 6 hours by intraveno us route. 11/27 completed Not Available Not Available Not Available Ozempic 0.25 mg or 0.5 mg (2 mg/1.5 mL) subcutaneou s pen injector Inject 0.25 mg every week by subcutane ous route. 2023 active Not Available Not Available Not Avai lable Ozempic 0.25 mg or 0.5 mg (2 mg/3 mL) subcutaneou s pen injector active Not Available Not Available Not Available Vitals Date Recorded Body height Body mass index (BMI) Body weight Heart rate Oxygen saturation Oxygen saturation in Arterial blood by Pulse oximetry Systolic blood pressure Diastolic blood pressure Provider Name and Address Organization Details Last Updated DateTime 4 157.48 cm 25.5 kg/m2 74433.1 4 g 78 /min 96 % 96 % 118 mm[Hg] 78 mm[Hg] Marilyn Mora MA [facility] 4 16:07:20 Date Recorded Body height Body mass index (BMI) Body weight Heart rate Oxygen saturation Oxygen saturation in Arterial blood by Pulse oximetry Provider Name and Address Organization Details Last Updated DateTime 4 157.48 cm 29.1 kg/m2 25350.1 9 g 82 /min 99 % 99 % JE Brooks [facility] 4 16:14:02 Date Recorded Systolic blood pressure Diastolic blood pressure Provider Name and Address Organization Details Last Updated DateTime 08/11/2024 139 mm[Hg] 82 mm[Hg] COLE LAWTON Attn: Accounting,[address] [place], [address], [facility] 08/12/2024 09:13:05 Date Recorded Body height Body mass index (BMI) Body weight Heart rate Oxygen saturation Oxygen saturation in Arterial blood by Pulse oximetry Provider Name and Address Organization Details Last Updated DateTime 4 157.48 cm 30.9 kg/m2 41841.1 1 g 71 /min 96 % 96 % Marilyn Mora MA [facility] 4 08:44:07 Date Recorded Systolic blood pressure Diastolic blood pressure Provider Name and Address Organization Details Last Updated DateTime 10/21/2024 139 mm[Hg] 77 mm[Hg] COLE LAWTON Attn: Accounting,[address] [facility], [place], [address], [facility] 10/21/2024 13:52:34 Date Recorded Body height Body mass index (BMI) Body weight Heart rate Oxygen saturation Oxygen saturation in Arterial blood by Pulse oximetry Systolic blood pressure Diastolic blood pressure Provider Name and Address Organization Details Last Updated DateTime 5 157.48 cm 29.3 kg/m2 34088.7 8 g 78 /min 99 % 99 % 106 mm[Hg] 68 mm[Hg] Marilyn Moar MA [facility] 5 10:29:53 Date Recorded Body height Body mass index (BMI) Body weight Heart rate Oxygen saturation Oxygen saturation in Arterial blood by Pulse oximetry Systolic blood pressure Diastolic blood pressure Provider Name and Address Organization Details Last Updated DateTime 5 157.48 cm 29.3 kg/m2 81914.7 8 g 68 /min 99 % 99 % 113 mm[Hg] 72 mm[Hg] Marilyn Mora MA [facility] 5 11:29:30 Social History Question Answer Notes LastModified by Organizat ion Details LastModified Time Tobacco Smoking Status Never Smoker [facility] 11/20/2015 14:30:34 What Is Your Level Of Alcohol Consumption? None [email or web address] Information not available 11/20/2015 Is Blood Transfusion Acceptable In An Emergency? Yes [email or web address] Information not available 11/20/2015 What Is Your Level Of Caffeine Consumption? Occasional Information not available 11/20/2015 How Much Tobacco Do You Chew? None Information not available 11/20/2015 In The 14 Days Before Symptom Onset, Have You Had Close Contact With A Laboratory-confirm ed COVID-19 While That Case Was Ill? No Information n ot available 08/13/2022 In The 14 Days Before Symptom Onset, Have You Had Close Contact With A Person Who Is Under Investigation For COVID-19 While That Person Was Ill? No Information not available 08/13/2022 Have You Been To An Area Known To Be High Risk For COVID-19? No Information not available 08/13/2022 Are You Currently Employed? Yes [email or web address] Information not available 11/20/2015 What Type Of Diet Are You Following? REGULAR [email or web address] Information n ot available 11/20/2015 Which Illicit Or Recreational Drugs Have You Used? None [email or web address] Information not available 11/20/2015 Education 12 [email or web address] Information no t available 11/20/2015 Live Alone Or With Others? With Others [email or web address] Information not available 11/20/2015 What Was The Date Of Your Most Recent Tobacco Screening? 12/20/2024 Information not available 12/20/2024 How Many Children Do You Have? 4 [email or web address] Information not available 11/20/2015 Performs Monthly Self-breast Exam? Yes [email or web address] Information no t available 11/20/2015 What Is Your Relationship Status? Single [email or web address] Information not available 11/20/2015 Seat Belts Used Routinely Yes [email or web address] Information not available 11/20/2015 Are You Sexually Active? No [email or web address] Information not available 11/20/2015 Do You Have Smoke And Carbon Monoxide Detectors In Your Home? Yes Information not available 08/13/2022 Are You Passively Exposed To Smoke? No Information no t available 08/13/2022 General Stress Level Medium [email or web address] Information not available 11/20/2015 Do You Use Any Illicit Or Recreational Drugs? No Information not available 08/13/2022 Do You Use Sunscreen Routinely? No [email or web address] Information not available 11/20/2015 Has Tobacco Cessation Counseling Been Provided? No Information not available 08/12/2024 On What Date Was Tobacco Cessation Counseling Provided? 12/20/2024 Information not available 12/20/2024 Sex: Female Functional Status Question Answer Note LastModified by Organizat ion Details LastModified Time What is your exercise level? Occasional Information not available 11/20/2015 Mental Status None recorded. Family History Relationship Description Onset Age of this Age Resolved Age Notes LastModified by Organization Details LastModified Time Father Malignant tumor of breast [email or web address] Not available 2015 16:42:56 Medical History No medical history recorded. Gynecological History Statement/Question Response Abnormal Pap Y Date of Last Mammogram 03/13/2024 On BCP's at Conception? N STIs/STDs N HPV Vaccine N Age at Menarche 14 Current Control Method None Age at First Child 18 Sexually Active? N Menses Monthly N Date of Last Pap Smear 11/20/2015 Sexual Problems? N LMP Unknown Obstetrics History GPAL:G 5 P 4 0 1 4 Type Value Multiple Births 0 Full Term 4 Induced 1 Spontaneous 0 Premature 0 Living 4 Ectopics 0 Total 5 Immunizations Vaccine Type Date Status Note Provider Nam e and Address Organization Details Recorded Time COVID-19, mRNA, LNP-S, PF, 30 mcg/0.3 mL dose 03/30/2021 completed Marilyn Mor[place], [place] [facility] 03/01/2024 16:41:51 COVID-19, mRNA, LNP-S, PF, 30 mcg/0.3 mL dose 04/20/2021 completed Marilyn Mor[place], [place] [facility] 03/01/2024 16:41:51 Tdap 07/28/2008 completed Marilyn Mor[place] [facility] 03/01/2024 16:41:51 MMR 04/30/2023 constantine Mor[place] [facility] 03/01/2024 16:41:58 Tdap 04/30/2023 completed Marilyn Mor[place] [facility] 03/01/2024 16:41:58 Tdap 09/13/2022 completed COLE LAWTON Attn: Accounting,[address] [place], [address], [place] [facility] 09/13/2022 13:56:10 Past Encounters Encounter ID Performer Location Encounter Start Date Encounter Closed Date Diagnosis/Indication Diagnosis SNOMED-CT Code Diagnosis ICD10 Code Diagnosis Note [id number] Chan Cosby MD [facility] (ASSOCIATE SOFTWARE APPLICATION ENGINEER) [address] [place] [address] 11/20/2015 13:32:48 12/05/2015 11:54:11 Gynecologic examination 73166140 Z01.419 [id number] [address] [place] [address] 12/18/2015 16:27:59 12/25/2015 12:50:24 Serous otitis media 66727624 H65.01 Acute otitis media 42415 03 H65.192 [id number] Jacqueline Jensen [facility] (ASSOCIATE SOFTWARE APPLICATION ENGINEER) [address] [place] [address] 02/19/2016 13:42:42 02/19/2016 14:51:12 [id number] [facility] [address] [place] [address] 09/25/2016 16:03:46 09/30/2016 16:33:16 Concussion with no loss of consciousness 32320883 S06.0X0D Injury of head 88702828 S09.90XS Hip pain 05605979 M25.55 1 Strain of flexor muscle of hip 566238642 S76.011A Itching of ear 721147038 L29.8 Headache 64949883 R51 [id number] [facility] [address] [place] [address] 11/27/2016 16:05:05 12/12/2016 15:57:24 Concussion with no loss of consciousness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
--- OUTSIDE RECORDS SUMMARY | 2025-01-13 12:49 | XMS_ITS | Referral Summary ---
Author Organization [facility] Address [address] [place] [address] Care Team Providers Care Registered Clinical Dietitian Name Role Phone Yanna Gurrola Primary Care Provider + Allergies No known active allergies Medications acetaminophen 500 mg capsuleIndicati ons:Fever,Pain Take 2 capsules (1,000 mg total) by mouth every 6 (six) hours as needed for pain 100 tablet 4 Active cyclobenzaprine (FLEXERIL) 5 mg tablet Take 1 tablet (5 mg total) by mouth 3 (three) times a day 50 tablet 4 Active ibuprofen (ADVIL,MOTRIN) 600 mg tablet Take 1 tablet (600 mg total) by mouth 3 (three) times a day 100 tablet 4 Active oxyCODONE (ROXICODONE) 5 mg immediate release tabletIndicatio ns:Pain Take 1 tablet (5 mg total) by mouth every 8 (eight) hours as needed for pain 10 tablet 4 Active Additional Information Patient not taking.Reported on 02/17/2024 Active Problems Problem Noted Date Diagnosed Date Discharge planning issues 01/24/2024 Assessment & Plan (01/26/2024 8:35 AM CDT): 01/23 functionally independent at baseline, anticipate return to home once medically stable 01/25 Discharging home with in person follow up in [facility] with diplomatic interpreter/translator. Acute calculous cholecystitis 01/23/2024 Assessment & Plan (01/26/2024 8:34 AM CDT): 01/23 OR ([facility]): laparoscopic cholecystectomy, hydrops 01/24 afebrile, mild hypotension overnight - LR 500cc x1, multimodal analgesia regimen, Tbili 0.5, CLD and mobilize today given degree of difficulty intra-op plan for home tomorrow 01/25 Tolerating clear liquids. Denies nausea. Advancing diet to low fat diet. LFT's bili 0.3, AP 166 (154), AST 30, ALT 67. GB culture with GPC's, no susceptibilities. No plan for antibiotic treatment unless develops biloma or signs of infection. Will discharge home today with follow up in person related to language barrier- Mongolian speaking. CULTURES 01/23 bile: GPC ANTIBIOTICS: 01/22 zosyn 01/22 erta 01/23 periop ancef PATH: 01/23 GB tissue: pending Social History Tobacco Use Types Packs/Day Years Used Date Smoking Tobacco: Never Tobacco Cessation:Counseling Given: Not Answered Alcohol Use Standard Drinks/Week Comments Not Currently 0 (1 standard drink = 0.6 oz pur e alcohol) PHQ-2 Answer Date Recorded PHQ-2 Total Score (If total score is 3 or more points, staff should administer the PHQ-9) 0 01/24/2024 Hunger Vital Sign Answer Date Recorded Within the past 12 months, y ou worried that your food would run out before you got the money to buy more. Never true 02/17/20 24 Within the past 12 months, t he food you bought just didn't last and you didn't have money to get more. Never true 02/17/2024 Personal Safety Answer Date Recorded Have you ever been in or are you currently in a harmful physical or emotional relationship or is someone making you feel afraid or unsafe? 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 Gender Identity Not on file Sexual Orientation Not on file Last Filed Vital Signs Vital Sign Reading Time Taken Comments Blood Pressure 135/67 02/17/2024 8:06 AM CDT Pulse 54 02/17/2024 8:06 AM CDT Temperature 36.5 C (97.7 F) 02/17/2024 8:06 AM CDT Respiratory Rate 18 01/26/2024 3:59 PM CDT Oxygen Saturation 99% 02/17/2024 8:06 AM CDT Inhaled Oxygen Concentration - - Weight 65.9 kg (145 lb 4.8 oz) 02/17/2024 8:06 A M CDT Height 157.5 cm (5' 2 ) 02/17/2024 8:06 AM CDT Body Mass Index 26.58 02/17/2024 8:06 AM CDT Plan of Treatment Not on file Procedures Procedure Name Priority Date/Time Associated Diagnosis Comments SCREENING MAMMOGRAM BILATERAL W KURTIS Routine 03/31/2015 9:45 AM CDT from Last 3 Months or Most Recently Relevant to Health Maintenance Results * Screening Mammogram Bilateral W Kurtis (03/31/2015 9:45 AM CDT) Anatomical Region Laterality Modality Breast Bilateral Mammography 03/31/2015 9:45 AM CDT Impressions 03/31/2015 11:22 AM CDT BIRADS 2: BENIGN Bilateral mastectomies with implant reconstruction. There is no mammographic evidence of malignancy. Clinical follow-up is recommended. Electronically signed by: Chandler Mcdonough md/:03/31/2015 11:17:11 Optical Laboratory Manager: Karen HERRERA(Leopoldo)(Linda), [facility] letter sent: Normal Exam Reading location: BI-RADS: 2 Benign [EOD] Narrative 03/31/2015 11:22 AM CDT - CÉSAR BILAT SCREENING 3D W/CAD BILATERAL DIGITAL SCREENING MAMMOGRAM 3D/2D WITH CAD WITH MEDIOLATERAL OBLIQUE CRANIOCAUDAL: 03/31/2015 The study was acquired using full field digital technology and interpreted from soft copy. Current study was also evaluated with ICAD version 7.2. CLINICAL: Routine mammogram. Denies any problems today. Personal history of breast cancer. 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 COMPARISONS: Comparison is made to exams dated: 03/27/2012 mammogram and 02/28/2012 mammogram - [facility]. BREAST TISSUE:The tissue of both breasts is almost entirely fatty. FINDINGS: The patient is status post bilateral mastectomy with bilateral subpectoral silicone breast implant reconstruction. The presence of implants limits the sensitivity of mammography. There is minimal residual breast tissue bilaterally, which is almost entirely fat density. No suspicious mass, calcifications, or other significant mammographic findings are identified. Procedure Note Provider, MD Stanley - 03/27/2021 - CÉSAR BILAT SCREENING 3D W/CAD BILATERAL DIGITAL SCREENING MAMMOGRAM 3D/2D WITH CAD WITH MEDIOLATERALOBLIQUE CRANIOCAUDAL: 03/31/2015 The study was acquired using full field digital technology and interpretedfrom soft copy. Current study was also evaluated with ICAD version 7.2. CLINICAL: Routine mammogram. Denies any problems today. Personal historyof breast cancer. 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 COMPARISONS: Comparison is made to exams dated: 03/27/2012 mammogram and 02/28/2012 mammogram - [facility]. BREAST TISSUE:The tissue of both breasts is almost entirely fatty. FINDINGS: The patient is status post bilateral mastectomy with bilateral subpectoral silicone breast implant reconstruction. The presence ofimplants limits the sensitivity of mammography. There is minimal residual breast tissue bilaterally, which is almostentirely fat density. No suspicious mass, calcifications, or other significant mammographic findings are identified. IMPRESSION: BIRADS 2: BENIGN Bilateral mastectomies with implant reconstruction. There is nomammographic evidence of malignancy. Clinical follow-up is recommended. Electronically signed by: Chandler Mcdonough md/:03/31/2015 11:17:11 Optical Laboratory Manager: Karen Rocha RT(R)(M), [facility] letter sent: Normal Exam Reading location: BI-RADS: 2 Benign [EOD] us Jung Brice Jr., MD IMG MAMMO PROCEDURES Final Result from Last 3 Months or Most Recently Relevant to Health Maintenance Insurance [facility] Advance Directives For more information, please contact: [phone] Documents on File Type Date Recorded Patient Crib Attendant Expl anation ADVANCE DIRECTIVE 07/13/2012 12:00 AM 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
--- OUTSIDE RECORDS SUMMARY | 2025-01-13 12:49 | XMS_ITS | Clinical Summary ---
Author Organization [facility] Address [address] [facility], [place] [address] Phone Care Team Providers Care Substation Inspector Name Role Phone Meir Ortiz MD Unavailable [phone] Yanna Gurrola PAC Primary Care Provider Allergies No known active allergies Medications ibuprofen (MOTRIN) 600 MG Tablet TK 1 T PO TID 0 7 Active ondansetron (ZOFRAN) 4 MG Tablet Take 1 Tab by mouth every 8 hours as needed for Nausea. 15 Tab 7 Active Additional Information Patient not taking.Reported on 11/19/2017 cyclobenzaprine (FLEXERIL) 10 MG Tablet Take 10 mg by mouth 3 times daily as needed. Active SUMAtriptan (IMITREX) 100 MG Tablet Take 1 Tab by mouth daily as needed for Migraine. Use as directed. May repeat dose in 2 hours if headache recurs. 9 Tab 3 9 Active topiramate (TOPAMAX) 25 MG Tablet Take 1 Tablet by mouth 2 times daily. 180 Tablet 1 2 Active citalopram (CeleXA) 10 MG Tablet Take 1 Tablet by mouth daily. 30 Tablet 3 2 Active Active Problems Problem Noted Date Diagnosed Date Insomnia 04/25/2017 Post-traumatic headache 02/17/2017 Carpal tunnel syndrome 02/17/2017 Family History Medical History Relation Name Comments Stomach Cancer Father No Known Problems Mother Relation Name Status Comments Father Mother Alive Social History Tobacco Use Types Packs/Day Years Used Date Smoking Tobacco: Former Smokeless Tobacco: Never Tobacco Cessation:Counseling Given: No Alcohol Use Standard Drinks/Week Comments No 0 (1 standard drink = 0.6 oz pur e alcohol) Comments No Sex and Gender Information Value Date Recorded Sex Assigned at Not on file 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 Gender Identity Not on file Sexual Orientation Not on file Last Filed Vital Signs Vital Sign Reading Time Taken Comments Blood Pressure 116/70 05/30/2022 1:25 PM CDT Pulse 57 05/30/2022 1:25 PM CDT Temperature 36.3 C (97.3 F) 05/30/2022 1:25 PM CDT Respiratory Rate 18 05/30/2022 1:25 PM CDT Oxygen Saturation 98% 05/30/2022 1:25 PM CDT Inhaled Oxygen Concentration - - Weight 62.5 kg (137 lb 12.8 oz) 05/30/2022 1:25 PM CDT Height 157.5 cm (5' 2 ) 05/30/2022 1:25 PM CDT Body Mass Index 25.2 05/30/2022 1:25 PM CDT Plan of Treatment Health Maintenance Due Date Last Done Comments Hepatitis C Virus (HCV) Screening 1966 Hepatitis B Immunization (1 of 3 - 19+ 3-dose series) 1985 Pap Smear 1987 Cervical Cancer Screening (CCS) 1996 HPV/Cotest 1996 Colonoscopy 2011 Colorectal Cancer Screening 2011 Cologuard 2016 Immunochemical Fecal Occult Blood 2016 Mammogram 2016 Pneumococcal Immunization (5 0+ years) (1 of 1 - PCV) 2016 Zoster Immunization (1 of 2) 2016 Influenza Immunization (#1) 2024 SARS-COV-2 Immunization (3 - 2023- season) 2024 04/20/2021, 03/30/2021 Respiratory Syncytial Virus (RSV) Immunization (Adult) (1 - 1-dose 75+ series) 2041 DTaP/Tdap/Td Immunization Discontinued 07/28/2008 TdaP Immunization Completed 07/28/2008 Meningococcal Immunization (ACWY) Aged Out No longer eligible based on patient's age to complete this topic Pneumococcal Immunization Combined Aged Out No longer eligible based on patient's age to complete this topic Rotavirus Immunization Aged Out No lo nger eligible based on patient's age to complete this topic Care Teams Substation Inspector Relationship Specialty Start Date End Date Yanna Gurrola PAC [address] [place] [address] PCP - General Physician Longwall Foreman 09/12/21 Meir Ortiz MD Consulting Physician Neurology 12/05/16
--- OUTSIDE RECORDS SUMMARY | 2025-01-13 12:49 | XMS_ITS | Clinical Summary ---
Author Organization [facility] Address [address] [place] [address] Care Team Providers Care Supervisor Pyrotechnic Loading Name Role Phone Yanna Gurrola Primary Care [...] person follow up in [facility] with foreign language interpreter. Acute calculous cholecystitis 01/23/2024 Assessment & Plan [...] up in person related to language barrier- Telugu speaking. 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 Gender Identity Not on file Sexual Orientation Not on file Obstetrics History Last Filed Vital Signs Vital Sign Reading [...] 02/17/2024 8:06 AM CDT Plan of Treatment Health Maintenance Due Date Last Done Comments Cervical Cancer Screening 1966 Colon Cancer Screening-Colonoscopy 1966 Hepatitis C Screening 1966 Hepatitis B Screening 1984 Regular Well Visit/Exam 18-64 1984 Breast Cancer Screening-Mammogram 03/31/2016 03/31/2015 Zoster Vaccine (1 of 2) 2016 Covid-19 Vaccine (3 - 2023-2 5 season) 2024 04/20/2021, 03/30/2021 Influenza Vaccine (#1) 2024 Depression Screening 01/22/2025 01/23/2024, 01/23/2024 DTaP/Tdap/Td Vaccine (4 - Td or Tdap) 04/30/2033 04/30/2023, 09/13/2022, 07/28/2008 Pneumococcal vaccine <65 Aged Out No longer eligible based on patient's age to complete this topic Procedures Procedure Name Priority Date/Time Associated Diagnosis [...] Electronically signed by: Chandler Mcdonough md/:03/31/2015 11:17:11 Salesperson Books: Karen Rocha RT(R)(M), [facility] letter sent: Normal Exam Reading location: BI-RADS: 2 Benign [EOD] Narrative 03/31/2015 11:22 AM CDT - [facility] BILAT SCREENING 3D W/CAD BILATERAL DIGITAL SCREENING [...] dated: 03/27/2012 mammogram and 02/28/2012 mammogram - [facility]. BREAST TISSUE:The tissue of both breasts is [...] Note Provider, MD Stanley - 03/27/2021 - [facility] BILAT SCREENING 3D W/CAD BILATERAL DIGITAL SCREENING [...] dated: 03/27/2012 mammogram and 02/28/2012 mammogram - [facility]. 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
== END 2025-01-13 11:06 | disposition home or self-care (01) ==
PROVIDERS: PCP Physician Assistant; Visit Provider Physician Assistant
DX: N64.4 Mastodynia (principal); Z98.82 Breast implant status
CPT/HCPCS: 77062; 77066; G0279

== ENCOUNTER 2025-02-07 09:46 | Outpatient (CLI) | payer OTHER, SELFPAY ==
--- NOTE | ~2025-02-07 | MR_ITS ---
MR breast BI wo/w con 02/07/2025 11:37 CDT INDICATION: Personal history of breast malignancy. TECHNIQUE: MRI of the breasts perform using standard protocol pre-and post IV contrast with the follo wing sequences: Axial T2 STIR, axial T1, axial vibrant T1 with fat suppression precontrast and multip hasic postcontrast. Intravenous contrast administered with 12 cc ProHance. COMPARISON: Mammograms dated 03/13/2024 and 01/13/2025 FINDINGS: Not dense: There are scattered areas of fibroglandular content. There are bilateral breast implants. There are no abnormalities on the precontrast sequences. There is minimal background parenc hymal enhancement. There is bilateral enhancement surrounding the breast implants, likely secondary t o fibrosis. No enhancing lesions following contrast administration. No areas of enhancement meeting threshold criteria on CAD analysis. No evidence of signal abnormalities in the axillary or internal mammary node distributions. LEFT BREAST: No signal abnormalities on precontrast sequences. There is minimal background parenchym al enhancement. No enhancing lesions following contrast administration. No areas of enhancement me eting threshold criteria on CAD analysis. No evidence of signal abnormalities in the axillary or in ternal mammary node distributions.] IMPRESSION: 1: Right breast: Negative. No evidence of malignancy. BI-RADS category 1. Recommend annual mammo graphy follow-up. 2: Left breast: Negative. No evidence of malignancy. BI-RADS category 1. Recommend annual mammogr aphy follow-up. Follow-up MRI may be useful for supplementing mammographic evaluation as clinically indicated. Reviewed, dictated and finalized at location A. IMPRESSION: 1: Right breast: Negative. No evidence of malignancy. BI-RADS category 1. Recommend annual mammography follow-up. 2: Left breast: Negative. No evidence of malignancy. BI-RADS category 1. Re commend annual mammography follow-up. Follow-up MRI may be useful for supplementing mammographic evaluation as clinic ally indicated.
--- OUTSIDE RECORDS SUMMARY | 2025-02-07 10:46 | XMS_ITS | Clinical Summary ---
Author Organization [facility] Address [address] [place] [address] Care Team Providers Care Food And Beverage Assistant Name Role Phone Yanna Gurrola Primary Care [...] person follow up in [facility] clinic with auger machine offbearer. Acute calculous cholecystitis 01/23/2024 Assessment & Plan [...] up in person related to language barrier- Palestinian speaking. CULTURES 01/23 bile: GPC ANTIBIOTICS: 01/22 [...] money to get more. Never true 02/17/2024 PHQ-9 Answer Date Recorded PHQ-9 Total Score 0 01/24/2024 Personal Safety Answer Date Recorded Have you ever been in or are you currently in a harmful physical or emotional relationship or is someone making you feel afraid or unsafe? 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 BILAT SCREENING 3D W/CAD BILATERAL DIGITAL SCREENING [...] dated: 03/27/2012 mammogram and 02/28/2012 mammogram - [facility]. BREAST TISSUE:The tissue of both breasts [...] Note Provider, MD Stanley - 03/27/2021 - [facility] BILAT SCREENING 3D W/CAD BILATERAL DIGITAL SCREENING [...] dated: 03/27/2012 mammogram and 02/28/2012 mammogram - [facility]. 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 Care Agent Care Teams Food And Beverage Assistant Relationship Specialty Start Date End Date Yanna Gurrola PA PCP - General Physician Postdoctoral Research Associate 01/23/24
--- OUTSIDE RECORDS SUMMARY | 2025-02-07 10:46 | XMS_ITS | Referral Summary ---
Author Organization [facility] Address [address] [place] [address] Care Team Providers Care Special Deputy Sheriff Name Role Phone Yanna Gurrola Primary Care [...] person follow up in [facility] with pastoral assistant. Acute calculous cholecystitis 01/23/2024 Assessment & Plan [...] up in person related to language barrier- Singaporean speaking. 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 BREAST TISSUE:The tissue of both breasts [...] copy. Current study was also evaluated with [employer] version 7.2. CLINICAL: Routine mammogram. Denies any problems today. Personal historyof breast cancer. 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 COMPARISONS: Comparison is made to exams dated: 03/27/2012 mammogram and 02/28/2012 mammogram - [facility]. BREAST TISSUE:The tissue of both breasts [...] Electronically signed by: Chandler Mcdonough md/:03/31/2015 11:17:11 Foreign Language Stenographer: Karen Rocha RT(R)(M), [facility] letter sent: Normal Exam Reading location: BI-RADS: 2 Benign [EOD] us Jung Brice Jr., MD IMG MAMMO PROCEDURES Final Result from Last 3 Months or Most Recently Relevant to Health Maintenance Insurance [facility] Advance Directives For more information, please contact: [phone] Documents on File Type Date Recorded Patient Customer Advisor Specialist Expl anation ADVANCE DIRECTIVE 07/13/2012 12:00 AM POWER OF INVESTIGATION DIVISION [employer] FINANCIAL/MEDICAL * Full Code (Latest Code Status on File) Date Activated Date Inactivated Comments 01/24/2024 12:25 AM 01/26/2024 8:57 PM Healthcare Agents on File Name Relationship Healthcare Agent Relationship Communication Veena Dougherty Daughter Second [facility] Care Agent Care Teams Special Deputy Sheriff Relationship Specialty Start Date End Date Yanna Gurrola PA PCP - General Physician Post Closing Specialist 01/23/24
--- OUTSIDE RECORDS SUMMARY | 2025-02-07 10:46 | XMS_ITS | Clinical Summary ---
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
--- OUTSIDE RECORDS SUMMARY | 2025-02-07 10:46 | XMS_ITS | Data Portability ---
[facility] Address [address] [place] [address] Care Team Providers Care Ecology Teacher Name Role Phone YANNA PÉREZ Primary Care Provider [phone] Assessment Encounter Date Assessment Date Assessment LastModified [...] pap, IG + reflex HPV 2024 025 [facility], [address] [facility], [address], [place], [address], 5 19:19:56 HbA1c (hemoglobi n A1c), blood 2024 025 [facility] In-Office Order, Internal Use Only DO Not Attach Compendium DO Not Attach Compendium, Do Not Delete/merge, [id number] 5 10:58:40 noninvasiv e colorectal cancer DNA + occult blood screening, QL, stool 2024 025 [facility] (Cologuard Orders Only), [address], [address], [place], [address], 5 13:44:43 PT/PTT, plasma 2023 [facility], [address], [address], [place], [address], 4 01:08:11 CBC w/ auto diff 2023 [facility], [address], [address], [place], [address], 4 08:31:31 CMP, serum or plasma 2023 [facility]ER[facility], [address], [address], [place], [address], 4 08:31:30 urinalysis , dipstick 2023 [facility] In-Office Order, Internal Use Only DO Not Attach Compendium DO Not Attach Compendium, Do Not Delete/merge, [id number] 4 17:02:08 HbA1c (hemoglobi n A1c), blood 2023 [facility] MORATAY[facility], [address], [address], [place], [address], 4 01:08:09 culture, urine 2023 [facility], [address], [address], [place], [address], 4 01:08:10 lipid panel, serum 2023 [facility], [address], [address], [place], [address], 4 01:07:27 TSH, ultra-sens itive, serum 2023 024 [facility], [address] [facility], [address], [place], [address], 4 11:16:20 CMP, serum or plasma 2023 024 [facility], [address] [facility] [address], [address], [place], [address], 4 01:07:27 CBC w/ auto diff 2023 024 [facility], [address] [facility] [address], [address], [place], [address], 4 01:07:28 HbA1c (hemoglobi n A1c), blood 2023 024 [facility], [address] [facility] [address], [address], [place], [address], 4 11:16:20 vitamin D, 25-hydroxy , total, serum 2023 024 [facility], [address] [facility], [address], [place], [address], 4 11:16:21 Referral breast surgery referral - had breast reconstruc tion 15 years ago post cancerneed s f/u [address] - [facility], [address], [place] [address], [place], [address], 5 08:12:29 gastroente rologist referral [address] ([facility]), [address] [facility] , [place], [address], 5 08:05:37 breast surgery referral - hx of breast cancer and reconstruc tion at [facility] feels mass on left breast under implant [address], [address] [place], [address], 4 16:42:10 gastroente rologist referral [address] (Rad), [address] [place], [address], 4 16:46:50 breast center referral 2023 024 [facility], [address], [address], [place], [address], 4 14:33:59 Procedures colonoscop y screening (PROC) 2023 024 [facility] Toni Tucker MD, [address] [facility] [address], [address], [place], [address], 4 15:37:09 Surgeries None recorded. Imaging MAMMO, diagnostic , digital, bilateral 2024 025 [facility] (Mammography) , [address], [place], [address], 5 13:11:35 US, breast, bilateral - Auth # [id number] [address] (Mammography) , [address], [place], [address], 5 08:07:11 US, breast, unilateral [address] (Rad), [address] [place], [address], 4 08:00:38 MAMMO, diagnostic , digital, bilateral [address] (Rad), [address] [place], [address], 08:00:46 MAMMO, screening, bilateral 2023 [facility] (Imaging), [address], [place], [address], 12:24:23 Medication Orders semaglutid e 0.25 mg or 0.5 mg (2 mg/1.5 mL) subcutaneo us pen injector 2023 [facility], [address], [place], [address], 13:52:17 Miralax 17 gram/dose oral powder 2023 [facility], [address], [place], [address], 17:36:49 Patient TargetsNo targets recorded. Patient Instructions Encounter Date Encounter Id Patient Instructions Last Modified By Organization Details Last Modified Time 03/01/2024 [id number] A healthy lifestyle: care instructions Not available 03/01/2024 16:42:22 08/11/2024 [id number] rhythm strip, EKG* [facility] Not available 09/18/2024 16:13:24 10/21/2024 [id number] A healthy lifestyle: care instructions Not available 10/21/2024 13:52:06 12/20/2024 [id number] A healthy lifestyle: care instructions Not available 12/20/2024 10:35:37 12/23/2024 [id number] A healthy lifestyle: care instructions Not available 12/23/2024 11:36:17 Reason for Referral Breast Center Referral for S creening mammography Referring Physician: Yanna Pérez Image Scientist, Encounter Date: 03/01/2024 Breast Surgery Referral for Mass of left breast hx of breast cancer and reconstruction at [facility] feels mass on left breast under implant Referring Physician: Yanna Pérez Image Scientist, Encounter Date: 08/11/2024 [employer] Referral for Screening for malignant neoplasm of colon Referring Physician: [facility], Encounter Date: 08/11/2024 [employer] Operator Referral for Screening for malignant neoplasm of colon Referring Physician: Yanna Pérez Image Scientist, Encounter Date: 10/21/2024 Breast Surgery Referral for Mastodynia of bilateral breasts had breast reconstruction 15 years ago post cancerneeds f/u Referring Physician: [facility], Encounter Date: 12/23/2024 Results Created Date Observation Date Name Description Value Unit Range Abnormal Flag Note LastModifiedBy Organization Detail LastModifiedTime 03/01/2003/03/2024 LIPID PANEL cholesterol, total 202 mg/dL 100-19 9 above high normal Not Available [facility] [address] [place], [address], 03/03/2024 01:07:27 03/01/2003/03/2024 LIPID PANEL triglyceride s 166 mg/dL 0-149 above high normal Not Available [facility] [address] [place], [address], 03/03/2024 01:07:27 03/01/2003/03/2024 LIPID PANEL HDL cholesterol 47 mg/dL 40-999 Not Available [facility] Department [address] [place], [address], 03/03/2024 01:07:27 03/01/2003/03/2024 LIPID PANEL VLDL cholesterol leann 33 mg/dL 5-40 Not Available [facility] [address] [place], [address], 03/03/2024 01:07:27 03/01/2003/03/2024 LIPID PANEL LDL chol calc ([facility]) 145 mg/dL 0-99 above high normal Not Available [facility] [address] [place], [address], 03/03/2024 01:07:27 03/01/20 24 03/03/2024 COMP. METAB OLIC PANEL (14) glucose 67 mg/dL 70-99 below low normal Not Available [facility] [address] [place], [address], 03/03/2024 01:07:27 03/01/20 24 03/03/2024 COMP. METAB OLIC PANEL (14) BUN 15 mg/dL 6-24 Not Available [facility] [address] [place] [address], [address], 03/03/2024 01:07:27 03/01/20 24 03/03/2024 COMP. METAB OLIC PANEL (14) creatinine 0.84 mg/dL 0.76-1 .27 Not Available [facility] [address] [place] [address], [address], 03/03/2024 01:07:27 03/01/20 24 03/03/2024 COMP. METAB OLIC PANEL (14) eGFR 81 >=60 Units for eGFR value s are mL/mi n/1.7 3 The eGFR Calcu latio n has not been valid ated for patie nts under the age of 18. If test resul ts are displ ayed for a patie nt under the age of 18, disre massimo that value . Not Available [facility] [address] [place] [address], [address], 03/03/2024 01:07:27 03/01/20 24 03/03/2024 COMP. METAB OLIC PANEL (14) BUN/creatini ne ratio 17 9-23 Not Available [facility] [address] [place] [address], [address], 03/03/2024 01:07:27 03/01/20 24 03/03/2024 COMP. METAB OLIC PANEL (14) sodium 139 mmol/ L 134-14 4 Not Available [facility] [address] [place] [address], [address], 03/03/2024 01:07:27 03/01/20 24 03/03/2024 COMP. METAB OLIC PANEL (14) potassium 4.3 mmol/ L 3.5-5. 2 Not Available [facility] [address] [place], [address], 03/03/2024 01:07:27 03/01/20 24 03/03/2024 COMP. METAB OLIC PANEL (14) chloride 101 mmol/ L 96-106 Not Available [facility] [address] [place] [address], [address], 03/03/2024 01:07:27 03/01/20 24 03/03/2024 COMP. METAB OLIC PANEL (14) carbon dioxide, total 23 mmol/ L 20-29 Not Available [facility] [address] [place] [address], [address], 03/03/2024 01:07:27 03/01/20 24 03/03/2024 COMP. METAB OLIC PANEL (14) calcium 9.6 mg/dL 8.7-10 .2 Not Available [facility] [address] [place], [address], 03/03/2024 01:07:27 03/01/20 24 03/03/2024 COMP. METAB OLIC PANEL (14) protein, total 7.9 g/dL 6.0-8. 5 Not Available [facility] [address] [place] [address], [address], 03/03/2024 01:07:27 03/01/20 24 03/03/2024 COMP. METAB OLIC PANEL (14) albumin 4.5 g/dL 3.8-4. 9 Not Available [facility] [address] [place], [address], 03/03/2024 01:07:27 03/01/20 24 03/03/2024 COMP. METAB OLIC PANEL (14) globulin, total 3.4 g/dL 1.5-4. 5 Not Available [facility] [address] [place], [address], 03/03/2024 01:07:27 03/01/20 24 03/03/2024 COMP. METAB OLIC PANEL (14) A/G ratio 1.0 1.2-2. 2 below low normal Not Available [facility] [address] [place], [address], 03/03/2024 01:07:27 03/01/20 24 03/03/2024 COMP. METAB OLIC PANEL (14) bilirubin, total 0.2 mg/dL 0.0-1. 2 Not Available [facility] [address] [place], [address], 03/03/2024 01:07:27 03/01/20 24 03/03/2024 COMP. METAB OLIC PANEL (14) alkaline phosphatase 125 IU/L 44-121 above high normal Not Available [facility] [address] [place], [address], 03/03/2024 01:07:27 03/01/20 24 03/03/2024 COMP. METAB OLIC PANEL (14) AST (SGOT) 17 IU/L 0-40 Not Available [facility] [address] [place], [address], 03/03/2024 01:07:27 03/01/20 24 03/03/2024 COMP. METAB OLIC PANEL (14) ALT (SGPT) 14 IU/L 0-32 Not Available [facility] [address] [place], [address], 03/03/2024 01:07:27 03/01/20 24 03/02/2024 CBC WITH DIFFE RENTI AL/PL ATELE T WBC 6.5 x10e3 /uL 3.4-10 .8 Not Available [facility] [address] [place] [address], [address], 03/03/2024 01:07:28 03/01/20 24 03/02/2024 CBC WITH DIFFE RENTI AL/PL ATELE T RBC 4.22 x10e6 /uL 3.77-5 .28 Not Available [facility] [address] [place], [address], 03/03/2024 01:07:28 03/01/20 24 03/02/2024 CBC WITH DIFFE RENTI AL/PL ATELE T hemoglobin 11.8 g/dL 11.1-1 5.9 Not Available [facility] [address] [place], [address], 03/03/2024 01:07:28 03/01/2003/02/2024 CBC WITH DIFFE RENTI AL/PL ATELE T hematocrit 38.3 % 34.0-4 6.6 Not Available [facility] [address] [place], [address], 03/03/2024 01:07:28 03/01/20 24 03/02/2024 CBC WITH DIFFE RENTI AL/PL ATELE T MCV 91 fL 79-97 Not Available [facility] [address] [place], [address], 03/03/2024 01:07:28 03/01/2003/02/2024 CBC WITH DIFFE RENTI AL/PL ATELE T MCH 28.0 pg 26.6-3 3.0 Not Available [facility] [address] [place], [address], 03/03/2024 01:07:28 03/01/20 24 03/02/2024 CBC WITH DIFFE RENTI AL/PL ATELE T MCHC 30.8 g/dL 31.5-3 5.7 below low normal Not Available [facility] [address] [place], [address], 03/03/2024 01:07:28 04/22/03/02/2024 CBC WITH DIFFE RENTI AL/PL ATELE T RDW 14.9 % 11.5-1 4.5 above high normal Not Available [facility] [address] [place], [address], 03/03/2024 01:07:28 03/01/20 24 03/02/2024 CBC WITH DIFFE RENTI AL/PL ATELE T platelets 286 x10e3 /uL 150-45 0 Not Available [facility] [address] [place], [address], 03/03/2024 01:07:28 03/01/20 24 03/02/2024 CBC WITH DIFFE RENTI AL/PL ATELE T neutrophils 57 % notest b. Not Available [facility] [address] [place] [address], [address], 03/03/2024 01:07:28 03/01/20 24 03/02/2024 CBC WITH DIFFE RENTI AL/PL ATELE T lymphs 33 % notest b. Not Available [facility] [address] [place] [address], [address], 03/03/2024 01:07:28 03/01/20 24 03/02/2024 CBC WITH DIFFE RENTI AL/PL ATELE T monocytes 7 % notest b. Not Available [facility] [address] [place], [address], 03/03/2024 01:07:28 03/01/20 24 03/02/2024 CBC WITH DIFFE RENTI AL/PL ATELE T eos 1 % notest b. Not Available [facility] [address] [place] [address], [address], 03/03/2024 01:07:28 03/01/20 24 03/02/2024 CBC WITH DIFFE RENTI AL/PL ATELE T basos 1 % notest b. Not Available [facility] [address] [place] [address], [address], 03/03/2024 01:07:28 03/01/20 24 03/02/2024 CBC WITH DIFFE RENTI AL/PL ATELE T neutrophils (absolute) 3.7 x10e3 /uL 1.4-7. 0 Not Available [facility] [address] [place], [address], 03/03/2024 01:07:28 03/01/20 24 03/02/2024 CBC WITH DIFFE RENTI AL/PL ATELE T lymphs (absolute) 2.2 x10e3 /uL 0.7-3. 1 Not Available [facility] [address] [place], [address], 03/03/2024 01:07:28 03/01/20 24 03/02/2024 CBC WITH DIFFE RENTI AL/PL ATELE T monocytes(ab solute) 0.5 x10e3 /uL 0.1-0. 9 Not Available [facility] [address] [place], [address], 03/03/2024 01:07:28 03/01/20 24 03/02/2024 CBC WITH DIFFE RENTI AL/PL ATELE T eos (absolute) 0.1 x10e3 /uL 0.0-0. 4 Not Available [facility] [address] [place], [address], 03/03/2024 01:07:28 03/01/20 24 03/02/2024 CBC WITH DIFFE RENTI AL/PL ATELE T baso (absolute) 0.0 x10e3 /uL 0.0-0. 2 Not Available [facility] [address] [place], [address], 03/03/2024 01:07:28 03/01/20 24 03/02/2024 CBC WITH DIFFE RENTI AL/PL ATELE T immature granulocytes 0.3 % notest b. Not Available [facility] [address] [place], [address], 03/03/2024 01:07:28 03/01/2003/02/2024 CBC WITH DIFFE RENTI AL/PL ATELE T immature grans (abs) 0.0 x10e3 /uL 0.0-0. 1 Not Available [facility] [address] [place], [address], 03/03/2024 01:07:28 03/01/2003/02/2024 CBC WITH DIFFE RENTI AL/PL ATELE T NRBC 0 % 0-0 Not Available [facility] [address] [place], [address], 03/03/2024 01:07:28 03/01/2003/03/2024 TSH RFX ON ABNOR MAL TO FREE T4 TSH 2.030 uIU/m L 0.450- 4.500 Not Available [facility] ([facility]) [address] [facility], [place], [address], 03/03/2024 11:16:20 03/01/2003/03/2024 HEMOG LOBIN A1C hemoglobin A1C 6.1 % 4.8-5. 6 above high normal Predi abete s: 5.7 - 6.4 Diabe aleksandr: >6.4 Glyce max contr ol for adult s with diabe aleksandr: <7.0 Not Available [facility] ([facility]) [address] [facility], [place], [address], 03/03/2024 11:16:20 03/01/20 24 03/03/2024 VITAM IN [...] Endoc rine Socie ty went on to furth er defin e vitam in D insuf ficie ncy as a level betwe en 21 and 29 ng/mL (2). 1. IOM (Inst itute of Medic ine). 2010. Dieta ry refer ence jillian es for calci um and D. Kacie joya [place]: [facility] . 2. Holyaneth k MF, Binkl ey [place], Bisch off-F errar i BENJAMIN, et al. Evalu ation , treat ment, and preve ntion of vitam in D defic iency : an Endoc rine Socie ty clini leann pract ice guide line. JCEM. 2010; 96(7) :1911 -30. Not Available [facility] ([facility]) [address] [place], [address], 03/03/2024 11:16:21 08/11/2008/13/2024 COMP. METAB OLIC PANEL (14) glucose 81 mg/dL 70-99 Not Available [facility] ([facility]) [address] [place], [address], 08/13/2024 08:31:30 08/11/2008/13/2024 COMP. METAB OLIC PANEL (14) BUN 12 mg/dL 6-24 Not Available [facility] ([facility]) [address] [place], [address], 08/13/2024 08:31:30 08/11/2008/13/2024 COMP. METAB OLIC PANEL (14) creatinine 0.79 mg/dL 0.57-1 .00 Not Available [facility] ([facility]) [address] [place], [address], 08/13/2024 08:31:30 08/11/2008/13/2024 COMP. METAB OLIC PANEL (14) eGFR 87 mL/mi n/1.7 3 >59 Not Available [facility] ([facility]) [address] [place], [address], 08/13/2024 08:31:30 08/11/20 24 08/13/2024 COMP. METAB OLIC PANEL (14) BUN/creatini ne ratio 15 9-23 Not Available [facility] ([facility]) [address] [facility], [place], [address], 08/13/2024 08:31:30 08/11/20 24 08/13/2024 COMP. METAB OLIC PANEL (14) sodium 142 mmol/ L 134-14 4 Not Available [facility] ([facility]) [address] [facility], [place], [address], 08/13/2024 08:31:30 08/11/20 24 08/13/2024 COMP. METAB OLIC PANEL (14) potassium 4.1 mmol/ L 3.5-5. 2 Not Available [facility] ([facility]) [address] [facility], [place], [address], 08/13/2024 08:31:30 08/11/20 24 08/13/2024 COMP. METAB OLIC PANEL (14) chloride 101 mmol/ L 96-106 Not Available [facility] ([facility]) [address] [place], [address], 08/13/2024 08:31:30 08/11/20 24 08/13/2024 COMP. METAB OLIC PANEL (14) carbon dioxide, total 26 mmol/ L 20-29 Not Available [facility] ([facility]) [address] [place], [address], 08/13/2024 08:31:30 08/11/20 24 08/13/2024 COMP. METAB OLIC PANEL (14) calcium 9.8 mg/dL 8.7-10 .2 Not Available [facility] ([facility]) [address] [place], [address], 08/13/2024 08:31:30 08/11/20 24 08/13/2024 COMP. METAB OLIC PANEL (14) protein, total 8.2 g/dL 6.0-8. 5 Not Available [facility] ([facility]) [address] [place], [address], 08/13/2024 08:31:30 08/11/20 24 08/13/2024 COMP. METAB OLIC PANEL (14) albumin 4.6 g/dL 3.8-4. 9 Not Available [facility] ([facility]) [address] [place], [address], 08/13/2024 08:31:30 08/11/20 24 08/13/2024 COMP. METAB OLIC PANEL (14) globulin, total 3.6 g/dL 1.5-4. 5 Not Available [facility] ([facility]) [address] [place], [address], 08/13/2024 08:31:30 08/11/20 24 08/13/2024 COMP. METAB OLIC PANEL (14) bilirubin, total 0.2 mg/dL 0.0-1. 2 Not Available [facility] ([facility]) [address] [facility] [place], [address], 08/13/2024 08:31:30 08/11/20 24 08/13/2024 COMP. METAB OLIC PANEL (14) alkaline phosphatase 130 IU/L 44-121 above high normal Not Available [facility] ([facility]) [address] [facility] [place], [address], 08/13/2024 08:31:30 08/11/20 24 08/13/2024 COMP. METAB OLIC PANEL (14) AST (SGOT) 26 IU/L 0-40 Not Available [facility] ([facility]) [address] [facility] [place], [address], 08/13/2024 08:31:30 08/11/20 24 08/13/2024 COMP. METAB OLIC PANEL (14) ALT (SGPT) 42 IU/L 0-32 above high normal Not Available [facility] ([facility]) [address] [facility], [place], [address], 08/13/2024 08:31:30 08/11/20 24 08/13/2024 CBC WITH DIFFE RENTI AL/PL ATELE T WBC 6.2 x10e3 /uL 3.4-10 .8 Not Available [facility] ([facility]) [address] [facility], [place], [address], 08/13/2024 08:31:31 08/11/20 24 08/13/2024 CBC WITH DIFFE RENTI AL/PL ATELE T RBC 4.71 x10e6 /uL 3.77-5 .28 Not Available [facility] ([facility]) [address] [facility], [place], [address], 08/13/2024 08:31:31 08/11/20 24 08/13/2024 CBC WITH DIFFE RENTI AL/PL ATELE T hemoglobin 12.5 g/dL 11.1-1 5.9 Not Available [facility] ([facility]) [address] [facility], [place], [address], 08/13/2024 08:31:31 08/11/20 24 08/13/2024 CBC WITH DIFFE RENTI AL/PL ATELE T hematocrit 41.1 % 34.0-4 6.6 Not Available [facility] ([facility]) [address] [facility], [place], [address], 08/13/2024 08:31:31 08/11/20 24 08/13/2024 CBC WITH DIFFE RENTI AL/PL ATELE T MCV 87 fL 79-97 Not Available [facility] ([facility]) [address] [facility], [place], [address], 08/13/2024 08:31:31 08/11/20 24 08/13/2024 CBC WITH DIFFE RENTI AL/PL ATELE T MCH 26.5 pg 26.6-3 3.0 below low normal Not Available [facility] ([facility]) [address] [facility], [place], [address], 08/13/2024 08:31:31 08/11/20 24 08/13/2024 CBC WITH DIFFE RENTI AL/PL ATELE T MCHC 30.4 g/dL 31.5-3 5.7 below low normal Not Available [facility] ([facility]) [address] [facility], [place], [address], 08/13/2024 08:31:31 08/11/20 24 08/13/2024 CBC WITH DIFFE RENTI AL/PL ATELE T RDW 15.2 % 11.7-1 5.4 Not Available [facility] ([facility]) [address] [facility], [place], [address], 08/13/2024 08:31:31 08/11/20 24 08/13/2024 CBC WITH DIFFE RENTI AL/PL ATELE T platelets 313 x10e3 /uL 150-45 0 Not Available [facility] ([facility]) [address] [facility], [place], [address], 08/13/2024 08:31:31 08/11/20 24 08/13/2024 CBC WITH DIFFE RENTI AL/PL ATELE T neutrophils 52 % notest ab. Not Available [facility] ([facility]) [address] [facility], [place], [address], 08/13/2024 08:31:31 08/11/20 24 08/13/2024 CBC WITH DIFFE RENTI AL/PL ATELE T lymphs 34 % notest ab. Not Available [facility] ([facility]) [address] [facility], [place], [address], 08/13/2024 08:31:31 08/11/20 24 08/13/2024 CBC WITH DIFFE RENTI AL/PL ATELE T monocytes 10 % notest ab. Not Available [facility] ([facility]) [address] [facility], [place], [address], 08/13/2024 08:31:31 08/11/2008/13/2024 CBC WITH DIFFE RENTI AL/PL ATELE T eos 2 % notest ab. Not Available [facility] ([facility]) [address] [facility], [place], [address], 08/13/2024 08:31:31 08/11/20 24 08/13/2024 CBC WITH DIFFE RENTI AL/PL ATELE T basos 1 % notest ab. Not Available [facility] ([facility]) [address] [facility], [place], [address], 08/13/2024 08:31:31 08/11/20 24 08/13/2024 CBC WITH DIFFE RENTI AL/PL ATELE T neutrophils (absolute) 3.3 x10e3 /uL 1.4-7. 0 Not Available [facility] ([facility]) [address] [facility], [place], [address], 08/13/2024 08:31:31 08/11/20 24 08/13/2024 CBC WITH DIFFE RENTI AL/PL ATELE T lymphs (absolute) 2.1 x10e3 /uL 0.7-3. 1 Not Available [facility] ([facility]) [address] [facility], [place], [address], 08/13/2024 08:31:31 08/11/20 24 08/13/2024 CBC WITH DIFFE RENTI AL/PL ATELE T monocytes(ab solute) 0.6 x10e3 /uL 0.1-0. 9 Not Available [facility] ([facility]) [address] [facility], [place], [address], 08/13/2024 08:31:31 08/11/20 24 08/13/2024 CBC WITH DIFFE RENTI AL/PL ATELE T eos (absolute) 0.2 x10e3 /uL 0.0-0. 4 Not Available [facility] ([facility]) [address] [facility], [place], [address], 08/13/2024 08:31:31 08/11/20 24 08/13/2024 CBC WITH DIFFE RENTI AL/PL ATELE T baso (absolute) 0.0 x10e3 /uL 0.0-0. 2 Not Available [facility] ([facility]) [address] [facility], [place], [address], 08/13/2024 08:31:31 08/11/20 24 08/13/2024 CBC WITH DIFFE RENTI AL/PL ATELE T immature granulocytes 1 % notest ab. Not Available [facility] ([facility]) [address] [facility], [place], [address], 08/13/2024 08:31:31 08/11/20 24 08/13/2024 CBC WITH DIFFE RENTI AL/PL ATELE T immature grans (abs) 0.1 x10e3 /uL 0.0-0. 1 Not Available [facility] ([facility]) [address] [facility], [place], [place], [address], 08/13/2024 08:31:31 08/11/20 24 08/13/2024 SPECI MEN STATU S REPOR T specimen status report TNP Test not perfo rmed due to the age of this speci men. TEST: 16747 1 PT and PTT Not Available [facility] ([facility]) [address] [facility], [place], [address], 08/14/2024 01:08:08 08/11/20 24 08/13/2024 HEMOG LOBIN A1C hemoglobin A1C 6.2 % 4.8-5. 6 above high normal Predi abete s: 5.7 - 6.4 Diabe aleksandr: >6.4 Glyce max contr ol for adult s with diabe aleksandr: <7.0 Not Available [facility] ([facility]) [address] [place], [address], 08/14/2024 01:08:09 08/11/20 24 08/14/2024 URINE CULTU RE, ROUTI NE urine culture, routine FINAL REPORT Not Available [facility] ([facility]) [address] [place], [address], 08/14/2024 01:08:10 08/11/20 24 08/14/2024 URINE CULTU RE, ROUTI NE result 1 COMMEN T Cultu re shows less than 10,00 0 colon y formi ng units of bacte gary per maude liter of urine . This colon y count is not gener ally consi dered to be clini mallika signi fican t. Not Available [facility] ([facility]) [address] [place], [address], 08/14/2024 01:08:10 08/11/20 24 08/13/2024 PT AND [...] range 2.5 - 3.5 Not Available [facility] ([facility]) [address] [place], [address], 08/14/2024 01:08:11 08/11/20 24 08/13/2024 PT AND PTT prothrombin time - Test not perfo rmed Not Available [facility] ([facility]) [address] [place], [address], 08/14/2024 01:08:11 08/11/20 24 08/13/2024 PT AND PTT APTT - Test not perfo rmed Not Available [facility] ([facility]) [address] [place], [address], 08/14/2024 01:08:11 08/12/2008/12/2024 urina lysis , dipst [...] 08/12/2024 urina lysis , dipst ick Specific Muncy 1.015 Not Available In-Off ice Order Internal Use Only DO Not Attach Compendium DO Not Attach Compendium, Do Not Delete/merge, 08/11/2024 16:30:37 08/12/20 24 08/12/2024 urina lysis , dipst ick Ketone Negati ve Not Available In-Office Order Internal Use Only DO Not Attach Compendium DO Not Attach Compendium, Do Not Delete/merge, [id number] 08/11/2024 16:30:37 08/12/20 24 08/12/2024 urina lysis , dipst ick Bilirubin Negati ve Not Available In-Office Order Internal Use Only DO Not Attach Compendium DO Not Attach Compendium, Do Not Delete/merge, [id number] 08/11/2024 16:30:37 08/12/20 24 08/12/2024 urina lysis , dipst ick Glucose Negati ve Not Available In-Office Order Internal Use Only DO Not Attach Compendium DO Not Attach Compendium, Do Not Delete/merge, [id number] 08/11/2024 16:30:37 08/12/20 24 08/12/2024 urina lysis , dipst ick Appearance Cloudy Not Available In-Offi ce Order Internal Use Only DO Not Attach Compendium DO Not Attach Compendium, Do Not Delete/merge, [id number] 08/11/2024 16:30:37 08/12/20 24 08/12/2024 urina lysis , dipst ick Color Yellow Not Available In-Office Order Internal Use Only DO Not Attach Compendium DO Not Attach Compendium, Do Not Delete/merge, [id number] 08/11/2024 16:30:37 12/21/19 25 12/21/2024 HbA1c (hemo globi n A1c), blood HbA1c 6.1 Not Available In-Office Order Internal Use Only DO Not Attach Compendium DO Not Attach Compendium, Do Not Delete/merge, [id number] 12/20/2024 10:47:05 12/23/19 25 12/23/2024 IGP,A PTIMA HPV,A GE GDLN age gdln acog testing 30-65 Not Available [facility] ([facility]) [address] [facility], [place], [address], 12/27/2024 19:19:56 12/23/19 25 12/24/2024 IGP,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
== END 2025-02-07 09:47 | disposition home or self-care (01) ==
PROVIDERS: PCP Physician Assistant; Visit Provider Surgery
DX: T85.44XA Capsular contracture of breast implant, initial encounter (principal); Z85.3 Personal history of malignant neoplasm of breast; Z90.13 Acquired absence of bilateral breasts and nipples; Z98.82 Breast implant status
CPT/HCPCS: 77049; A9579; C8908